=== PATIENT | male | born 1975 | race Caucasian/White ===

== ENCOUNTER 2017-07-02 19:54 | Inpatient (IN) | payer BC ==
[~2017-07-02] VITALS: Ht 190.5 cm; Wt 160.6 kg
[2017-07-02] MEDS ORDERED: ALBUTEROL SULF 2.5 MG/0.5ML(0.5%) NEB SOLN NEB ONE (20:30)
[2017-07-02] MEDS ORDERED: IPRATROPIUM BROM 0.5 MG/2.5ML INH SOL NEB ONE (20:30)
[2017-07-02 21:04] LABS: Basophils # (auto) 0 uL; Basophils % (auto) 0.2 % (0.0-2.0); Eosinophils # (auto) 0.1 uL; Eosinophils % (auto) 1.2 % (0.0-7.0); Hematocrit 52.7 % (41.0-53.0); Hemoglobin 16.6 g/dL (13.5-17.5); Lymphocytes # (auto) 1.6 uL; Lymphocytes % (auto) 20.4 % (10.0-50.0); Mean Corpuscular Hgb Conc. 31.5 g/dL (32.0-36.0); Mean Corpuscular Volume 91.9 fL (80.0-100.0); Monocytes # (auto) 0.7 uL; Monocytes % (auto) 9.4 % (0.0-12.0); Neutrophils # (auto) 5.4 uL; Neutrophils % (auto) 68.8 % (37.0-80.0); Nucleated Red Blood Cells % 0.5 %; Platelet Count (auto) 216 10^3/uL (140-450); Red Blood Cells 5.74 10^6/uL (4.5-5.90); Red Cell Distribution Width 17.9 % (11.8-14.3); White Blood Cell 7.9 10^3/uL (4.4-10.8)
[2017-07-02 21:17] LABS: Albumin 3.1 g/dL (3.4-5.0); BUN/Creatinine Ratio 13.3; Magnesium 1.7 mg/dL (1.6-2.6); Potassium 3.3 mmol/L (3.5-5.1)
[2017-07-02 21:20] LABS: Bilirubin, Total 1.7 mg/dL (0.2-1.0); Total Protein 6.9 g/dL (6.4-8.2)
[2017-07-02 21:29] LABS: INR 1.05 (0.9-1.15); Partial Thromboplastin Time 24.1 sec (22.64-33.71); Prothrombin Time 11.4 sec (9.37-12.3)
[2017-07-02] MEDS ORDERED: FUROSEMIDE 20 MG/2 ML VIAL IV ONE (23:15)
[2017-07-02] MEDS ORDERED: POTASSIUM CHL 20 Meq TABLET PO ONE (23:15)
[2017-07-02] MEDS ORDERED: MORPHINE SULFATE 4 MG/ML SYR/VIAL IV ONE (23:30)
[2017-07-02] MEDS ORDERED: ONDANSETRON HCL 4 MG/2 ML VIAL IV ONE (23:30)
[2017-07-02] MEDS ORDERED: MORPHINE SULFATE 4 MG/ML SYR/VIAL IV PRN (23:45)
[2017-07-02] MEDS ORDERED: ONDANSETRON HCL 4 MG/2 ML VIAL IV PRN (23:45)
[2017-07-02] MEDS ORDERED: ACETAMINOPHEN 500 MG TAB PO PRN (23:45)
[2017-07-02] MEDS ORDERED: NITROGLYCERIN 0.4 MG SL TAB SL PRN (23:45)
[2017-07-03] VITALS (7 sets, daily range): BP systolic 122–139; BP diastolic 66–84
[2017-07-03] MEDS ORDERED: FUROSEMIDE 20 MG/2 ML VIAL IV ONE (00:45)
[2017-07-03] MEDS ORDERED: methylPREDNISolone SOD SUCC 125 MG/2 ML VL IV ONE (00:45)
[2017-07-03 01:43] LABS: Urine Bacteria NONE SEEN /hpf (None Seen); Urine Blood Negative /uL (Negative); Urine Mucus FEW (None Seen); Urine WBC 1 /hpf (0 - 3)
[2017-07-03] MEDS: HYDROcodone-ACET 5/325MG TAB PO PRN ×3 (01:53→22:28)
[2017-07-03] MEDS ORDERED: DIGO0.2520 PO (02:07)
[2017-07-03] MEDS ORDERED: FURO40TA4 PO (02:08)
[2017-07-03] MEDS ORDERED: OMEP20TA PO (02:08)
[2017-07-03] MEDS ORDERED: CARV25TA55 PO (02:09)
[2017-07-03] MEDS ORDERED: ATOR40TA52 PO (02:09)
[2017-07-03] MEDS ORDERED: RIVA20TA PO (02:10)
[2017-07-03 05:47] LABS: Basophils # (auto) 0 uL; Eosinophils # (auto) 0 uL; Hemoglobin 17.2 g/dL (13.5-17.5); Lymphocytes # (auto) 0.9 uL; Monocytes # (auto) 0.2 uL; Neutrophils # (auto) 7.3 uL; White Blood Cell 8.4 10^3/uL (4.4-10.8)
[2017-07-03 05:50] LABS: Basophils % (auto) 0.2 % (0.0-2.0); Eosinophils % (auto) 0.4 % (0.0-7.0); Lymphocytes % (auto) 10.5 % (10.0-50.0); Mean Corpuscular Hemoglobin 29.1 pg (28.0-32.0); Mean Corpuscular Hgb Conc. 31.3 g/dL (32.0-36.0); Monocytes % (auto) 2.1 % (0.0-12.0); Neutrophils % (auto) 86.8 % (37.0-80.0); Nucleated Red Blood Cells % 0.3 %; Platelet Count (auto) 230 10^3/uL (140-450); Red Blood Cells 5.92 10^6/uL (4.5-5.90); Red Cell Distribution Width 18.3 % (11.8-14.3)
[2017-07-03 06:23] LABS: Cholesterol 112 mg/dL (< 200); HDL Cholesterol 23 mg/dL (40-59); LDL Cholesterol 86 mg/dL (< 100); Triglycerides 145 mg/dL (< 150)
[2017-07-03 06:26] LABS: BUN/Creatinine Ratio 13.6; Calcium 8.1 mg/dL (8.5-10.1); Potassium 3.8 mmol/L (3.5-5.1)
[2017-07-03] MEDS: CARVEDILOL 12.5 MG TAB PO SCH ×2 (09:27→22:25)
[2017-07-03] MEDS: DIGOXIN 0.25 MG TAB PO SCH (09:29)
[2017-07-03] MEDS: RIVAROXABAN 20 MG TAB PO SCH (09:57)
[2017-07-03] MEDS ORDERED: POTASSIUM CHL 20 Meq TABLET PO SCH (10:00)
[2017-07-03] MEDS ORDERED: FUROSEMIDE 40 MG/4 ML VIAL IV SCH (10:00)
[2017-07-03] MEDS ORDERED: PANTOPRAZOLE 40 MG TAB PO ONE (11:00)
[2017-07-03] MEDS ORDERED: OPTISON 3ml Vial for INJ IV ONE (14:02)
[2017-07-03] MEDS ORDERED: RIVAROXABAN 20 MG TAB PO SCH (18:00)
[2017-07-03] MEDS: FUROSEMIDE 40 MG/4 ML VIAL IV SCH (18:04)
[2017-07-03 21:39] LABS: Albumin 3.3 g/dL (3.4-5.0); BUN/Creatinine Ratio 17.1; Bilirubin, Total 1.7 mg/dL (0.2-1.0); Calcium 8.2 mg/dL (8.5-10.1); Potassium 3.9 mmol/L (3.5-5.1); Total Protein 7.1 g/dL (6.4-8.2)
[2017-07-03] MEDS: POTASSIUM CHL 20 Meq TABLET PO SCH (22:24)
[2017-07-03] MEDS: ATORVASTATIN 20 MG TAB PO SCH (22:25)
[2017-07-04 04:34] VITALS: BP 120/67
[2017-07-04] MEDS: FUROSEMIDE 40 MG/4 ML VIAL IV SCH ×2 (05:20→17:54)
[2017-07-04] MEDS: HYDROcodone-ACET 5/325MG TAB PO PRN ×2 (05:26→19:26)
[2017-07-04 06:45] LABS: BUN/Creatinine Ratio 21.9; Calcium 8.3 mg/dL (8.5-10.1); Potassium 3.9 mmol/L (3.5-5.1)
[2017-07-04 08:00] VITALS: BP 119/56
[2017-07-04 09:00] VITALS: BP 119/56
[2017-07-04] MEDS: RIVAROXABAN 20 MG TAB PO SCH (09:26)
[2017-07-04] MEDS: POTASSIUM CHL 20 Meq TABLET PO SCH ×2 (09:26→21:49)
[2017-07-04] MEDS: DIGOXIN 0.25 MG TAB PO SCH (09:28)
[2017-07-04] MEDS: PANTOPRAZOLE 40 MG TAB PO SCH (09:29)
[2017-07-04] MEDS: CARVEDILOL 12.5 MG TAB PO SCH ×2 (09:29→21:50)
[2017-07-04] MEDS: ALBUTEROL SULF 2.5 MG/0.5ML(0.5%) NEB SOLN NEB PRN ×2 (10:41→18:35)
[2017-07-04] MEDS: IPRATROPIUM BROM 0.5 MG/2.5ML INH SOL NEB PRN ×2 (10:41→18:35)
[2017-07-04 13:00] VITALS: BP 110/65
[2017-07-04 17:00] VITALS: BP 123/66
[2017-07-04 21:47] VITALS: BP 126/70
[2017-07-04] MEDS: ATORVASTATIN 20 MG TAB PO SCH (21:49)
[2017-07-04] MEDS: TEMAZEPAM 15 MG CAP PO PRN (22:14)
[2017-07-05 04:45] VITALS: BP 108/68
[2017-07-05] MEDS: FUROSEMIDE 40 MG/4 ML VIAL IV SCH ×2 (06:09→18:30)
[2017-07-05] MEDS: HYDROcodone-ACET 5/325MG TAB PO PRN ×2 (06:10→20:50)
[2017-07-05 08:27] VITALS: BP 124/63
[2017-07-05] MEDS: ALBUTEROL SULF 2.5 MG/0.5ML(0.5%) NEB SOLN NEB PRN (09:25)
[2017-07-05] MEDS: IPRATROPIUM BROM 0.5 MG/2.5ML INH SOL NEB PRN (09:25)
[2017-07-05] MEDS: RIVAROXABAN 20 MG TAB PO SCH (10:42)
[2017-07-05] MEDS: PANTOPRAZOLE 40 MG TAB PO SCH (10:42)
[2017-07-05] MEDS: POTASSIUM CHL 20 Meq TABLET PO SCH ×2 (10:42→22:17)
[2017-07-05] MEDS: DIGOXIN 0.25 MG TAB PO SCH (10:42)
[2017-07-05] MEDS: CARVEDILOL 12.5 MG TAB PO SCH ×2 (10:43→22:18)
[2017-07-05 16:26] VITALS: BP 110/67
[2017-07-05 22:00] VITALS: BP 118/74
[2017-07-05] MEDS: TEMAZEPAM 15 MG CAP PO PRN (22:17)
[2017-07-05] MEDS: ATORVASTATIN 20 MG TAB PO SCH (22:17)
[2017-07-06] MEDS: FUROSEMIDE 40 MG/4 ML VIAL IV SCH (05:38)
[2017-07-06 06:10] VITALS: BP 122/70
[2017-07-06] MEDS: HYDROcodone-ACET 5/325MG TAB PO PRN (08:05)
[2017-07-06 09:00] VITALS: BP 125/73
[2017-07-06] MEDS: CARVEDILOL 12.5 MG TAB PO SCH ×2 (10:57→20:59)
[2017-07-06] MEDS: DIGOXIN 0.25 MG TAB PO SCH (10:58)
[2017-07-06] MEDS: POTASSIUM CHL 20 Meq TABLET PO SCH ×2 (10:58→21:00)
[2017-07-06] MEDS: PANTOPRAZOLE 40 MG TAB PO SCH (10:58)
[2017-07-06] MEDS: RIVAROXABAN 20 MG TAB PO SCH (10:59)
[2017-07-06] MEDS: ALBUTEROL SULF 2.5 MG/0.5ML(0.5%) NEB SOLN NEB PRN (11:40)
[2017-07-06] MEDS: IPRATROPIUM BROM 0.5 MG/2.5ML INH SOL NEB PRN (11:40)
[2017-07-06 13:00] VITALS: BP 148/69
[2017-07-06 17:00] VITALS: BP 131/71
[2017-07-06] MEDS: FUROSEMIDE 40 MG TAB PO SCH (17:40)
[2017-07-06] MEDS: ATORVASTATIN 20 MG TAB PO SCH (20:59)
[2017-07-06] MEDS: TEMAZEPAM 15 MG CAP PO PRN (21:00)
[2017-07-06 22:00] VITALS: BP 125/71
[2017-07-07] MEDS: HYDROcodone-ACET 5/325MG TAB PO PRN ×4 (02:11→21:03)
[2017-07-07 05:10] VITALS: BP 115/72
[2017-07-07] MEDS: FUROSEMIDE 40 MG TAB PO SCH ×2 (06:12→18:05)
[2017-07-07 06:47] LABS: Potassium 4.3 mmol/L (3.5-5.1)
[2017-07-07 06:51] LABS: BUN/Creatinine Ratio 27.1; Calcium 9.3 mg/dL (8.5-10.1)
[2017-07-07 08:08] VITALS: BP 120/75
[2017-07-07] MEDS: RIVAROXABAN 20 MG TAB PO SCH (09:42)
[2017-07-07] MEDS: CARVEDILOL 12.5 MG TAB PO SCH ×2 (09:42→21:03)
[2017-07-07] MEDS: PANTOPRAZOLE 40 MG TAB PO SCH (09:43)
[2017-07-07] MEDS: POTASSIUM CHL 20 Meq TABLET PO SCH ×2 (09:43→21:02)
[2017-07-07] MEDS: DIGOXIN 0.25 MG TAB PO SCH (09:43)
[2017-07-07 11:55] VITALS: BP 105/59
[2017-07-07 16:59] VITALS: BP 96/68
[2017-07-07] MEDS: ATORVASTATIN 20 MG TAB PO SCH (21:03)
[2017-07-07] MEDS: TEMAZEPAM 15 MG CAP PO PRN (21:56)
[2017-07-07 23:10] VITALS: BP 105/57
[2017-07-08 05:20] VITALS: BP 108/66
[2017-07-08] MEDS: FUROSEMIDE 40 MG TAB PO SCH ×2 (06:11→17:17)
[2017-07-08 09:00] VITALS: BP 122/64
[2017-07-08] MEDS: DIGOXIN 0.25 MG TAB PO SCH (10:04)
[2017-07-08] MEDS: POTASSIUM CHL 20 Meq TABLET PO SCH ×2 (10:04→21:39)
[2017-07-08] MEDS: RIVAROXABAN 20 MG TAB PO SCH (10:05)
[2017-07-08] MEDS: PANTOPRAZOLE 40 MG TAB PO SCH (10:05)
[2017-07-08] MEDS: CARVEDILOL 12.5 MG TAB PO SCH ×2 (10:05→21:40)
[2017-07-08 10:45] VITALS: BP 108/66
[2017-07-08 13:00] VITALS: BP 111/75
[2017-07-08 17:00] VITALS: BP 118/80
[2017-07-08] MEDS: TEMAZEPAM 15 MG CAP PO PRN (21:39)
[2017-07-08] MEDS: ATORVASTATIN 20 MG TAB PO SCH (21:40)
[2017-07-08 21:52] VITALS: BP 131/80
[2017-07-09 05:00] VITALS: BP 114/67
[2017-07-09] MEDS: HYDROcodone-ACET 5/325MG TAB PO PRN (06:06)
[2017-07-09] MEDS: FUROSEMIDE 40 MG TAB PO SCH ×2 (06:08→18:00)
[2017-07-09 08:41] VITALS: BP 118/75
[2017-07-09] MEDS: RIVAROXABAN 20 MG TAB PO SCH (09:03)
[2017-07-09] MEDS: CARVEDILOL 12.5 MG TAB PO SCH (09:04)
[2017-07-09] MEDS: DIGOXIN 0.25 MG TAB PO SCH (09:04)
[2017-07-09] MEDS: PANTOPRAZOLE 40 MG TAB PO SCH (09:04)
[2017-07-09] MEDS: POTASSIUM CHL 20 Meq TABLET PO SCH (09:04)
[2017-07-09 14:29] VITALS: BP 122/76
[2017-07-09 17:43] VITALS: BP 110/64
== END 2017-07-09 18:08 | disposition home or self-care (01) | DRG 291 ==
LOC: ER 19:54 → TELE 19:55 → TELE-CENTR 07-03 01:05
PROVIDERS: ADMIT Nurse Practitioner Family; ATTEND Internal Medicine
PROC: 5A09357 Assistance with Respiratory Ventilation, Less than 24 Consecutive Hours, Continuous Positive Airway Pressure (ICD-10-PCS; principal; 2017-07-06)
PROC: 5A09357 Assistance with Respiratory Ventilation, Less than 24 Consecutive Hours, Continuous Positive Airway Pressure (ICD-10-PCS; 2017-07-07)
PROC: 5A09357 Assistance with Respiratory Ventilation, Less than 24 Consecutive Hours, Continuous Positive Airway Pressure (ICD-10-PCS; 2017-07-08)
PROC: 5A09357 Assistance with Respiratory Ventilation, Less than 24 Consecutive Hours, Continuous Positive Airway Pressure (ICD-10-PCS; 2017-07-09)
DX: I11.0 Hypertensive heart disease with heart failure (principal); J96.00 Acute respiratory failure, unspecified whether with hypoxia or hypercapnia; E87.2 Acidosis; E66.01 Morbid (severe) obesity due to excess calories; J45.901 Unspecified asthma with (acute) exacerbation; Z68.41 Body mass index [BMI] 40.0-44.9, adult; I50.43 Acute on chronic combined systolic (congestive) and diastolic (congestive) heart failure; I42.9 Cardiomyopathy, unspecified; E78.5 Hyperlipidemia, unspecified; E87.6 Hypokalemia; G47.33 Obstructive sleep apnea (adult) (pediatric); J98.8 Other specified respiratory disorders; I48.91 Unspecified atrial fibrillation; R74.8 Abnormal levels of other serum enzymes; Z99.81 Dependence on supplemental oxygen; Z79.01 Long term (current) use of anticoagulants; Z82.3 Family history of stroke; Z82.49 Family history of ischemic heart disease and other diseases of the circulatory system; Z79.899 Other long term (current) drug therapy
CPT/HCPCS: 36415; 36600; 71045; 80048; 80053; 80061; 81001; 82140; 82805; 82962; 83735; 83880; 84443; 84484; 85025; 85379; 85610; 85730; 93005; 93306; 93970; 94640; 94660; 94761; 96374; 96375; J2405; Q9956

== ENCOUNTER 2019-08-22 14:47 | Inpatient (IN) | payer BC, MEDICAID ==
[~2019-08-22] VITALS: Ht 190.5 cm; Wt 133.0 kg
[~2019-08-22 14:47] MED LIST: ATOR40TA52 PO; CARV25TA55 PO; DIGO0.2520 PO; DOXYCYCLINE 100MG/250ML 250 ML IV SCH; FURO40TA4 PO; OMEP20TA PO; RIVA20TA PO
[2019-08-22] MEDS ORDERED: SODIUM CHLORIDE 0.9% 1,000 ML IV ONE (14:58)
[2019-08-22] MEDS ORDERED: AMIODARONE HCL 150 MG in D5W 5% 100 ML IV ONE (15:00)
[2019-08-22] MEDS ORDERED: PANTOPRAZOLE 40 MG/10 ML VIAL INJ IV ONE (15:00)
[2019-08-22] MEDS ORDERED: AMIODARONE 450mg/250ml AE 250 ML IV SCH (15:08)
[2019-08-22] MEDS ORDERED: AMIODARONE HCL (50 MG/ ML) 3 ML VIAL IV ONE (15:08)
[2019-08-22] MEDS ORDERED: IPRATROPIUM BROM 0.5 MG/2.5ML INH SOL NEB ONE ×2 (15:30→17:15)
[2019-08-22] MEDS ORDERED: FUROSEMIDE 20 MG/2 ML VIAL IV ONE ×2 (15:30→16:30)
[2019-08-22] MEDS ORDERED: ALBUTEROL SULF 2.5 MG/0.5ML(0.5%) NEB SOLN NEB ONE (15:30)
[2019-08-22 15:35] LABS: Eosinophils # (auto) 0 10 ^3/uL (0-0.8); Eosinophils % (auto) 0.3 % (0.0-7.0); Lymphocytes # (auto) 0.9 10 ^3/uL (0.4-5.4); Red Blood Cells 4.98 10^6/uL (4.5-5.90)
[2019-08-22 15:36] LABS: Basophils # (auto) 0.1 10 ^3/uL (0-0.2); Basophils % (auto) 0.7 % (0.0-2.0); Hematocrit 54.3 % (41.0-53.0); Lymphocytes % (auto) 10.7 % (10.0-50.0); Monocytes # (auto) 0.7 10 ^3/uL (0-1.3); Monocytes % (auto) 8.6 % (0.0-12.0); Neutrophils # (auto) 6.7 10 ^3/uL (1.6-8.6); Neutrophils % (auto) 79.7 % (37.0-80.0); White Blood Cell 8.4 10^3/uL (4.4-10.8)
[2019-08-22 15:37] LABS: Mean Corpuscular Hemoglobin 36.1 pg (28.0-32.0); Mean Corpuscular Hgb Conc. 33.2 g/dL (32.0-36.0); Mean Corpuscular Volume 108.9 fL (80.0-100.0); Platelet Count (auto) 143 10^3/uL (140-450); Red Cell Distribution Width 16.3 % (11.8-14.3)
[2019-08-22] MEDS ORDERED: dilTIAZem 25 MG/5 ML VIAL IV ONE (15:45)
[2019-08-22] MEDS ORDERED: dilTIAZem HCL 50 MG/10 ML VIAL IV ONE (15:46)
[2019-08-22 15:57] LABS: Alanine Aminotransferase 125 U/L (16-61); Albumin 2.9 g/dL (3.4-5.0); Anion Gap 12 (5-15); Aspartate Aminotransferase 209 U/L (15-37); BUN/Creatinine Ratio 16.7; Blood Urea Nitrogen 13 mg/dL (7-18); Calcium 7.8 mg/dL (8.5-10.1); Carbon Dioxide 24 mmol/L (21-32); Chloride 100 mmol/L (98-107); GFR African American 138 mL/min; GFR Non-African American 114 mL/min; Glucose 138 mg/dL (74-106); Sodium 136 mmol/L (136-145)
[2019-08-22 15:58] LABS: INR 1.18 (0.9-1.15); Partial Thromboplastin Time 25.4 sec (23.64-32.05)
[2019-08-22 15:59] LABS: Alkaline Phosphatase 65 U/L (45-117); Bilirubin, Total 7.7 mg/dL (0.2-1.0); Total Protein 7.2 g/dL (6.4-8.2)
[2019-08-22] MEDS ORDERED: DIGOXIN (250MCG/ML) 2 ML AMPULE ONE (16:07)
[2019-08-22 16:15] LABS: Potassium 2.8 mmol/L (3.5-5.1)
[2019-08-22] MEDS ORDERED: DIGOXIN (250MCG/ML) 2 ML AMPULE IV ONE (16:15)
[2019-08-22] MEDS ORDERED: MAGNESIUM SULFATE 1GM/100ML 100 ML IV ONE (16:24)
[2019-08-22] MEDS: MAGNESIUM SULFATE 1GM/100ML 100 ML IV SCH ×2 (16:26→17:19)
[2019-08-22] MEDS: POTASSIUM CHL 20 Meq TABLET PO SCH ×2 (16:31→18:00)
[2019-08-22 16:50] LABS: Urine Bacteria NONE SEEN /hpf (None Seen); Urine Blood Negative /uL (Negative); Urine Hyaline Cast FEW /lpf (0 - 2); Urine Mucus FEW (None Seen); Urine WBC 2 /hpf (0 - 3)
[2019-08-22 16:54] LABS: Amphetamine Screen, Urine NEGATIVE (NEGATIVE); Barbiturate Scree,Urine NEGATIVE (NEGATIVE); Benzodiazephine Screen, Urine NEGATIVE (NEGATIVE); Cannabinoid Screen, Urine NEGATIVE (NEGATIVE); Cocaine Screen, Urine NEGATIVE (NEGATIVE); Opiate Scree,Urine NEGATIVE (NEGATIVE); Phencyclidine Screen, Urine NEGATIVE (NEGATIVE)
[2019-08-22] MEDS ORDERED: METOCLOPRAMIDE HCL 5MG/ml INJ 2ml VIAL IV PRN (17:00)
[2019-08-22] MEDS ORDERED: ATORVASTATIN 20 MG TAB PO ONE (17:00)
[2019-08-22] MEDS ORDERED: METOPROLOL SUCCINATE XL 50 MG TAB PO ONE (17:00)
[2019-08-22] MEDS ORDERED: NITROGLYCERIN 0.4 MG SL TAB SL PRN (17:00)
[2019-08-22] MEDS ORDERED: ALUM & MAG HYDROX-SIMETH LIQ(MAALOX) 30 ML PO PRN (17:00)
[2019-08-22] MEDS ORDERED: DOCUSATE SOD 100 MG CAP PO PRN (17:00)
[2019-08-22] MEDS ORDERED: MORPHINE SULF INJ 2 MG/ML SYRINGE 1ML IV PRN ×2 (17:00)
[2019-08-22] MEDS ORDERED: LORazepam 2MG/ML-1ML VIAL ONE (17:07)
[2019-08-22] MEDS ORDERED: IOHEXOL 350 MG/ML 100ML IJ ONE (17:08)
[2019-08-22] MEDS ORDERED: DOXYCYCLINE 100MG/250ML 250 ML IV ONE (17:15)
[2019-08-22] MEDS ORDERED: LORazepam 2MG/ML-1ML VIAL IV ONE (17:15)
[2019-08-22] MEDS ORDERED: RIVAROXABAN 20 MG TAB PO SCH (17:30)
[2019-08-22] MEDS: FUROSEMIDE 100 MG/10ML VIAL IV SCH (17:34)
[2019-08-22 17:57] VITALS: BP 117/64
--- NOTE | 2019-08-22 18:23 | NUR ---
RT NOTE PT WAS SEEN BY RT FOR HHN TX. PT TOLERATES WELL VIA MOUTHPIECE. NO ADVERSE REACTION NOTED. CONT ORDERED. POX 95% Addendum: 08/22/19 at 1825 by Melissa Paniagua RT Amended: Links added.
[2019-08-22] MEDS ORDERED: HEPARIN DRIP/D5W 100UNITS/ML 250 ML IV SCH (18:37)
[2019-08-22] MEDS ORDERED: HEPARIN SODIUM (PORCINE) 5000 UNITS/ML 1ML VIAL IV ONE (18:45)
[2019-08-22] MEDS: HEPARIN DRIP/D5W 100UNITS/ML 250 ML IV SCH (19:08)
[2019-08-22 20:57] LABS: Basophils # (auto) 0.1 10 ^3/uL (0-0.2); Basophils % (auto) 0.7 % (0.0-2.0); Eosinophils # (auto) 0 10 ^3/uL (0-0.8); Monocytes # (auto) 0.9 10 ^3/uL (0-1.3); Monocytes % (auto) 8.5 % (0.0-12.0); Neutrophils # (auto) 7.5 10 ^3/uL (1.6-8.6); Red Cell Distribution Width 16.2 % (11.8-14.3)
[2019-08-22 20:59] LABS: Eosinophils % (auto) 0.3 % (0.0-7.0); Hematocrit 54.9 % (41.0-53.0); Hemoglobin 18.1 g/dL (13.5-17.5); Lymphocytes # (auto) 1.6 10 ^3/uL (0.4-5.4); Lymphocytes % (auto) 15.9 % (10.0-50.0); Mean Corpuscular Hgb Conc. 32.9 g/dL (32.0-36.0); Mean Corpuscular Volume 109.4 fL (80.0-100.0); Neutrophils % (auto) 74.6 % (37.0-80.0); Nucleated Red Blood Cells % 0.3 %; Platelet Count (auto) 151 10^3/uL (140-450); Red Blood Cells 5.02 10^6/uL (4.5-5.90)
[2019-08-22] MEDS: LORazepam 0.5 MG TAB PO PRN (21:24)
[2019-08-22] MEDS: methylPREDNISolone SOD SUCC 40 MG/ML VL IV SCH (21:43)
[2019-08-22] MEDS: ATORVASTATIN 20 MG TAB PO SCH (21:43)
[2019-08-22] MEDS: HYDROcodone-ACET 5/325MG TAB PO PRN (21:44)
[2019-08-22] MEDS ORDERED: IPRATROPIUM BROM 0.5 MG/2.5ML INH SOL NEB SCH (22:00)
[2019-08-22] MEDS ORDERED: CARVEDILOL 3.125 MG TAB PO SCH (22:00)
--- NOTE | 2019-08-22 22:26 | NUR ---
RT NOTE PT WAS SEEN BY RT FOR HHN TX IN THE ER. PT TOLERATES WELL VIA MOUTHPIECE. NO ADVERSE REACTION NOTED. CONT ORDERED Addendum: 08/22/19 at 2226 by Melissa Paniagua RT Amended: Links added.
[2019-08-22] MEDS ORDERED: AMIODARONE HCL 900 MG IV ONE (22:38)
[2019-08-22] MEDS ORDERED: HYDROmorphone HCL 2 MG/ML VL ONE (22:51)
[2019-08-22] MEDS ORDERED: METOPROLOL TARTRATE 1MG/1ML-5ML VIAL IV ONE ×2 (22:52→23:00)
[2019-08-22] MEDS: HYDROmorphone HCL 2 MG/ML VL IV PRN (23:00)
[2019-08-22 23:32] LABS: Albumin 2.9 g/dL (3.4-5.0); BUN/Creatinine Ratio 17.3; Calcium 7.8 mg/dL (8.5-10.1); Potassium 3.3 mmol/L (3.5-5.1)
[2019-08-22 23:35] LABS: Bilirubin, Total 8.9 mg/dL (0.2-1.0); Total Protein 7.2 g/dL (6.4-8.2)
--- NOTE | 2019-08-22 23:57 | NUR ---
Pt being admitted to ICU AWAISKJ admitted to ICU via gurney on radiation monitor, and portable 02. Patient transfered to bed, connected to ICU monitoring and oxygen, and weighed by bedscale. Patient oriented to Kennedy jimenez RN, unit, room, bed, and unit policies regarding patient care and visiting hours. All questions and concerns addressed, patient verbalized understanding. NOTE:
[2019-08-23] VITALS (29 sets, daily range): BP systolic 113–175; BP diastolic 63–133
--- NOTE | 2019-08-23 00:30 | NUR ---
IV removal IV TO LEFT AC DC'd with clean sterile technique, catheter fully intact. Pressure dressing applied to site. Patient tolerated well.
--- NOTE | 2019-08-23 00:40 | NUR ---
IV insertion IV access obtained, via clean sterile technique by inserting 20 gauge catheter at RIGHT FOREARM after 1 attempt(s). IV secured properly. No trauma to site. Patient tolerated well.
[2019-08-23] MEDS ORDERED: METOPROLOL TARTRATE 1MG/1ML-5ML VIAL IV PRN (01:00)
[2019-08-23] MEDS ORDERED: AMIODARONE 450mg/250ml AE 250 ML IV SCH ×2 (01:04→07:04)
[2019-08-23 01:16] LABS: INR 1.28 (0.9-1.15); Partial Thromboplastin Time 36.5 sec (23.64-32.05)
[2019-08-23] MEDS: POTASSIUM CHL 20MEQ/100ML 100 ML IV SCH ×2 (01:26→03:36)
[2019-08-23] MEDS ORDERED: FLUT500M2 INH (01:47)
[2019-08-23] MEDS: HYDROmorphone HCL 2 MG/ML VL IV PRN ×4 (03:29→20:18)
[2019-08-23] MEDS ORDERED: DOXYCYCLINE 100MG/250ML 250 ML IV SCH (05:00)
[2019-08-23] MEDS: methylPREDNISolone SOD SUCC 40 MG/ML VL IV SCH (05:39)
[2019-08-23] MEDS: FUROSEMIDE 100 MG/10ML VIAL IV SCH (05:40)
[2019-08-23] MEDS: LORazepam 0.5 MG TAB PO PRN (05:47)
[2019-08-23] MEDS ORDERED: FUROSEMIDE 100 MG/10ML VIAL IV SCH (06:00)
[2019-08-23] MEDS: BUDESONIDE (INHALATION) 0.5 MG/2 ML NEB NEB SCH ×2 (06:22→18:32)
[2019-08-23] MEDS: LEVALBUTEROL HCL 1.25 MG/3 ML NEB NEB PRN (06:22)
[2019-08-23] MEDS: IPRATROPIUM BROM 0.5 MG/2.5ML INH SOL NEB SCH ×3 (06:22→18:32)
[2019-08-23] MEDS: HEPARIN DRIP/D5W 100UNITS/ML 250 ML IV SCH ×2 (07:00→17:28)
[2019-08-23] MEDS: AMIODARONE 450mg/250ml AE 250 ML IV SCH ×3 (07:15→22:45)
--- NOTE | 2019-08-23 07:30 | NUR ---
REPORT REPORT RECEIVED FROM NIGHT RNTHOMAS. PT RESTING IN BED WITH EYES CLOSED. NO DISTRESS NOTED. REMAINS IN ATRIAL FIB ,RATE IN THE 130'S, WITH AMIODARONE AT 1 MG/MIN PER MD ORDER. CONTINUE TO MONITOR.
[2019-08-23 08:12] LABS: Eosinophils # (auto) 0 10 ^3/uL (0-0.8); Lymphocytes # (auto) 0.5 10 ^3/uL (0.4-5.4); Monocytes # (auto) 0.5 10 ^3/uL (0-1.3)
[2019-08-23 08:14] LABS: Basophils # (auto) 0.1 10 ^3/uL (0-0.2); Basophils % (auto) 1.1 % (0.0-2.0); Hematocrit 53.4 % (41.0-53.0); Hemoglobin 17.5 g/dL (13.5-17.5); Lymphocytes % (auto) 6.3 % (10.0-50.0); Mean Corpuscular Hemoglobin 35.8 pg (28.0-32.0); Mean Corpuscular Hgb Conc. 32.9 g/dL (32.0-36.0); Monocytes % (auto) 5.9 % (0.0-12.0); Neutrophils # (auto) 7.4 10 ^3/uL (1.6-8.6); Neutrophils % (auto) 86.7 % (37.0-80.0); Nucleated Red Blood Cells % 0.1 %; Platelet Count (auto) 122 10^3/uL (140-450); Red Blood Cells 4.89 10^6/uL (4.5-5.90); Red Cell Distribution Width 16.5 % (11.8-14.3); White Blood Cell 8.6 10^3/uL (4.4-10.8)
[2019-08-23] MEDS: DIGOXIN 0.25 MG TAB PO SCH (08:16)
--- NOTE | 2019-08-23 08:17 | NUR ---
ASSESSMENT PT AWAKE AND A/O X4. ABLE TO REPOSITION HIMSELF IN BED. LUNGS CLEAR AND DIMINISHED THROUGHOUT. ON O2 AT 8 L/M VIA OXYMIZER WITH O2 SAT OF 90%. DENIES FEELING SOB. PT WITH EXTENSIVE PE TO BOTH LUNGS. ON HEPARIN DRIP AT 2200 UNIT/HR , PER PROTOCOL. PTT AND AM LABS WERE DRAWN AT 0800. TELE ATRIAL FIB WITH RATE 130-140'S. PT ON AMIODARONE DRIP WITH RATE BEING KEPT AT 1 MG/MIN, PER MD ORDER. PALPABLE PULSES TO ALL EXTREMITIES. ABD SOFT WITH + BOWEL SOUNDS. DENIES ANY NAUSEA OR VOMITING. PT WITH PERIPHERAL IV X3, 2 TO THE HAND AND ONE TO THE RAC. ALL SITES BENIGN. PT WITH C/O PAIN TO THE LOWER BACK, 01/24. MEDICATED WITH DILAUDID 1 MG IV PER MD ORDER. RAILS UP X4 AND BED IN LOW POSITION FOR PT SAFETY. CONTINUE TO MONITOR PT FOR HR, BP AND PAIN RELIEF.
[2019-08-23 08:30] LABS: INR 1.23 (0.9-1.15); Partial Thromboplastin Time 40.5 sec (23.64-32.05)
[2019-08-23 08:31] LABS: Albumin 2.7 g/dL (3.4-5.0); Calcium 7.5 mg/dL (8.5-10.1); Magnesium 1.6 mg/dL (1.6-2.6); Potassium 3.5 mmol/L (3.5-5.1)
[2019-08-23 08:36] LABS: BUN/Creatinine Ratio 20.5; Bilirubin, Total 8.5 mg/dL (0.2-1.0); Phosphorus 3.5 mg/dL (2.5-4.90); Total Protein 6.8 g/dL (6.4-8.2)
--- NOTE | 2019-08-23 09:00 | NUR ---
PAIN PAIN LEVEL DOWN TO 6. CONTINUE TO MONITOR,
--- NOTE | 2019-08-23 09:30 | NUR ---
CARDIOLOGY TRES STAPLETON, CARDIOLOGY HIDE WASHER, HERE TO SEE THE PT. I UPDATED HER ON THE PT'S CURRENT CONDITION INCLUDING HR 130-140'S ATRIAL FIB, DESPITE AMIODARONE DRIP AND I GAVE DAILY DOSE OF DIG AT 0820, AND K OF 3.5 AND PT ON LASIX BID. ORDERS RECEIVED.
[2019-08-23] MEDS ORDERED: ASPirin 81 mg TAB PO SCH (10:00)
[2019-08-23] MEDS ORDERED: ENOXAPARIN SOD 40 MG/0.4 ML SYRINGE SC SCH (10:00)
[2019-08-23] MEDS ORDERED: POTASSIUM CHL 20 Meq TABLET PO SCH (10:00)
[2019-08-23] MEDS: METOPROLOL SUCCINATE XL 50 MG TAB PO SCH (10:08)
[2019-08-23] MEDS: PANTOPRAZOLE 40 MG TAB PO SCH (10:08)
[2019-08-23] MEDS: MAGNESIUM SULFATE 1GM/100ML 100 ML IV SCH ×2 (10:18→11:45)
--- NOTE | 2019-08-23 11:49 | NUR ---
PAGED DR NIEVES REGARDING PT'S C/O PAIN TO LOWER BACK. BEST RELIEF WITH DILAUDID WAS 6/10.
[2019-08-23] MEDS ORDERED: KETOROLAC TROMETH 30 MG/ML 1ML VIAL IV ONE (12:30)
--- NOTE | 2019-08-23 12:42 | NUR ---
PAIN/MD SPOKE WITH DR NIEVES REGARDING PT'S C/O BACK PAIN , NOW 01/24 UP FROM 09/24. ORDER RECEIVED FOR TORADOL 30 MG IV X1 AND GIVEN . MD STATES HE WILL BE DOWN SHORTLY. CONTINUE TO MONITOR PT FOR PAIN RELIEF. VS CURRENTLY 135-16-92% ON 8 L/M VIA OXYMIZER AND 130/106.
[2019-08-23] MEDS ORDERED: FOLIC ACID 1 MG in D5W 5% 50 ML IV ONE (13:15)
[2019-08-23] MEDS ORDERED: METOCLOPRAMIDE HCL 5MG/ml INJ 2ml VIAL IV PRN (13:15)
[2019-08-23] MEDS ORDERED: KETOROLAC TROMETH 30 MG/ML 1ML VIAL IV PRN (13:15)
[2019-08-23] MEDS ORDERED: THIAMINE 100mg/ml INJ (200mg/2ml VIAL) IV ONE (13:15)
--- NOTE | 2019-08-23 13:15 | NUR ---
MD VISIT/PAIN PT SEEN AND EXAMINED BY DR NIEVES. PT STATING THAT THE PAIN MEDICINE DID NOT HELP. DR NIEVES TOLD HIM HE NEEDS TO GIVE IT MORE TIME. PER MD. GIVE 15MG OF IV TORADOL Q 6 HRS PRN AND MAY SUPPLEMENT WITH EITHER NORCO OR DILAUDID SO PT CAN HAVE SOMETHING FOR PAIN EVERY 3 HOURS PRN. EXPLAINED TO PT. Addendum: 08/23/19 at 1532 by Nadia Victoria RN ALSO DISCUSSED WITH DR NIEVES THE PT'S ELEVATED HR AND HE IS STILL IN ATRIAL FIB, RATE 120'S TO 139. HE DOESN'T WANT ANY ADDITIONAL MED GIVEN AT THIS TIME.
--- NOTE | 2019-08-23 15:03 | NUR ---
PAIN PT MEDICATED WITH DILAUDID 1 MG IV FOR C/O BACK PAIN, 01/24. Addendum: 08/23/19 at 1532 by Nadia Victoria RN MONITOR FOR PAIN RELIEF AND REMINDED PT HE IS NOT TO GET OOB DUE TO THE EXTENSIVE BLOOD CLOTS AND ALSO THAT HE RECEIVED PAIN MED. HE EXPRESSED UNDERSTANDING.
[2019-08-23 16:43] LABS: INR 1.2 (0.9-1.15); Partial Thromboplastin Time 43.7 sec (23.64-32.05)
--- NOTE | 2019-08-23 17:22 | NUR ---
HEPARIN DRIP PTT OF 43.7 . PER PROTOCOL. RATE IS TO BE INCREASED BY 200 UNITS/HR. SPOKE WITH TASHA, PHARMACIST, INQUIRING IF THERE IS A MAXIMUM RATE OF INFUSION. HE STATED THAT LONG THE PT IS NOT HAVING ANY BLEEDING ISSUES THAT THERE IS NO MAXIMUM RATE. INCRASED THE RATE TO 2600 UNITS/HR AND VERIFIED BY TERRY ARAGON RN. WILL CHECK ANOTHER PTPTT AT 1130.
--- NOTE | 2019-08-23 18:02 | NUR ---
PAIN MEDICATED PT FOR C/O BACK PAIN, 12/25, WITH TORADOL 15 MG IV. CONTINUE TO MONITOR FOR PAIN RELIEF.
--- NOTE | 2019-08-23 19:30 | NUR ---
PT ATE ABOUT 60% OF HIS DINNER.
--- NOTE | 2019-08-23 19:30 | NUR ---
REPORT REPORT GIVEN TO SUMMER PEMBERTON RN.
--- NOTE | 2019-08-23 20:00 | NUR ---
Opening Shift Note/ pain Assumed care of patient, awake and alert. Breathing on Oxymizer 8LPM, nonlabored, No S/S of distress/SOB. Reported severe pain at back area 01/24, stated that the IV pain medicine that was previously given was not helping at all. Alternative pain relieved given; cold/ hot compress, Pt refused. Pt refused [place] PO, stated that pain tablet did not help him, will give Dilaudid per MD order and continue monitor. PIV x3 at right arm, CDI site. Due to void. Bed in low position, call light within reach, Fall and safety precaution in place, all alarms are audible. Instructed on POC and to call for assist PRN, will continue to monitor for changes Q1hr and PRN. Addendum: 08/24/19 at 0101 by Alejandra Brown RN Noted patient own medicines in the belonging bag, explained the reason and policy to patient, patient complied, will send home med to pharmacy for keeping and safety.
--- NOTE | 2019-08-23 21:20 | NUR ---
Patient own medication submitted to the pharmacy. POM wrist band applied to the patient. POM sticker applied to the chart.
--- NOTE | 2019-08-23 22:24 | NUR ---
Condition update/ sleeping medicine Pt lying on the bed, relaxed. VSS, nonlabored breathing. Pt reported more comfortable feeling now, nausea subsided, pain controlled and he might not need pain medicine tonight. Pt requested sleeping medicine. [facility] Hospitalist. Continue monitoring. Addendum: 08/24/19 at 0059 by Alejandra Brown RN Fabien PEPPER called back, condition notified, new order received, telephone order read back and verified correct see details in order sheet, will carry out the order.
[2019-08-23] MEDS: ATORVASTATIN 20 MG TAB PO SCH (23:40)
[2019-08-23] MEDS: TEMAZEPAM 15 MG CAP PO PRN (23:40)
--- NOTE | 2019-08-23 23:50 | NUR ---
Heparin drip PTT resulted 37.6 Adjusted per EMAR. increased from 2600units to 2800 units/hr. Co-singed at EMAR and bedside with Jorge MURPHY. Next PTT at 05.50am.
[2019-08-24] VITALS (68 sets, daily range): BP systolic 81–144; BP diastolic 62–111
[2019-08-24] MEDS: IPRATROPIUM BROM 0.5 MG/2.5ML INH SOL NEB SCH ×4 (00:05→18:23)
[2019-08-24] MEDS: LEVALBUTEROL HCL 1.25 MG/3 ML NEB NEB PRN (00:06)
[2019-08-24] MEDS: HYDROmorphone HCL 2 MG/ML VL IV PRN ×4 (00:38→21:13)
[2019-08-24] MEDS: TEMAZEPAM 15 MG CAP PO PRN (01:35)
--- NOTE | 2019-08-24 01:36 | NUR ---
Condition update/ tachycardia Pt stated that the pain is much better, pain score 7-8/10. Pt seemed comfortable, lying in bed, no agitation. HR sustained 140's -150's, SBP 130's. Metoprolol PRN given per order, continue monitoring.
[2019-08-24] MEDS: LORazepam 0.5 MG TAB PO PRN (03:31)
--- NOTE | 2019-08-24 03:50 | NUR ---
Condition update/ anxiety attack Pt restlessness and agitated with severe anxious. Pt c/o multiple things. Pt said he had been here for 4 days, his heart rates still high. Pt said he is out of breathe, he gonna , his oxygen is low, he coughed up blood. Pt c/o fluid restriction, pt stated he is so dehydrated. Pt c/o IV d/s peeling off. Attempted to calm the patient down, explained 1 issue at the time to patient. PIV d/s x2. Last amount of water of the shift 250ml provided and explained the reason of fluid restriction. Ativan PO given after explained. Explained to patient the investigation results; CTA, echo, LFT, BUN, Cr and so on. Told Pt that will endorse to day shift that Pt requested to talk to MD regarding his condition and POC. Will endorse to day shift that patient request to have more fluid intake. Pt requested to have fruits and vegetable in his food tray. Increased Oxymizer from 8LPM to 10LPM, for desaturation to mid 80's while sleeping. Pt stated that he use home CPAP. Patient can not remember the CPAP pressure level. Bedside time 40mins to calm the patient. Pt refused to do AM care at this time. Put on hospital gown as requested. Finally, Patient calm down and will try to sleep. Continue monitoring.
[2019-08-24] MEDS: HEPARIN DRIP/D5W 100UNITS/ML 250 ML IV SCH ×3 (04:00→21:30)
--- NOTE | 2019-08-24 05:35 | NUR ---
Condition update/ tachycardia Pt lying in the bed, calmed down, anxiety better, pain controlled. HR sustained in 150's, Bp 120/90's. Paged HospitalistMark Conn M.D. called back, condition notified, ordered to give Metoprolol 5mg IV for HR >140 bpm, x3 doses q5mins, monitor BP. Telephone order read back and verified correct. See EMAR for details. Addendum: 08/24/19 at 0750 by Alejandra Brown RN Metoprolol 5mg IV given for 2 doses. HR decreased to 128-142/min, BP 109/82, hold the 3rd dose and will continue monitor.
[2019-08-24] MEDS ORDERED: METOPROLOL TARTRATE 1MG/1ML-5ML VIAL IV ONE ×2 (05:43→05:59)
[2019-08-24] MEDS ORDERED: METOPROLOL TARTRATE 1MG/1ML-5ML VIAL IV SCH (05:45)
[2019-08-24] MEDS: AMIODARONE 450mg/250ml AE 250 ML IV SCH ×3 (06:08→21:16)
[2019-08-24] MEDS: BUDESONIDE (INHALATION) 0.5 MG/2 ML NEB NEB SCH ×2 (06:45→18:23)
--- NOTE | 2019-08-24 06:48 | NUR ---
Called LAB for PTT and AM LABs draw.
--- NOTE | 2019-08-24 07:30 | NUR ---
REPORT REPORT RECEIVED FROM NIECY RNSUMMER. PT RESTING IN BED WITH NO DISTRESS NOTED. REMAINS IN ATRIAL FIB WITH RATE IF THE 140'S. REMAINS ON AMIODARONE DRIP AT 1 MG/MIN. CONTINUE TO MONITOR.
[2019-08-24 07:43] LABS: Basophils # (auto) 0 10 ^3/uL (0-0.2); Eosinophils # (auto) 0 10 ^3/uL (0-0.8); Lymphocytes # (auto) 0.8 10 ^3/uL (0.4-5.4); Monocytes # (auto) 0.8 10 ^3/uL (0-1.3); Nucleated Red Blood Cells % 0.1 %
[2019-08-24 07:44] LABS: Basophils % (auto) 0.3 % (0.0-2.0); Hematocrit 52.4 % (41.0-53.0); Hemoglobin 17.5 g/dL (13.5-17.5); Lymphocytes % (auto) 6.6 % (10.0-50.0); Mean Corpuscular Hemoglobin 36.6 pg (28.0-32.0); Mean Corpuscular Hgb Conc. 33.4 g/dL (32.0-36.0); Mean Corpuscular Volume 109.5 fL (80.0-100.0); Monocytes % (auto) 6.6 % (0.0-12.0); Neutrophils # (auto) 11.1 10 ^3/uL (1.6-8.6); Neutrophils % (auto) 86.5 % (37.0-80.0); Platelet Count (auto) 172 10^3/uL (140-450); Red Blood Cells 4.78 10^6/uL (4.5-5.90); Red Cell Distribution Width 16.8 % (11.8-14.3); White Blood Cell 12.8 10^3/uL (4.4-10.8)
--- NOTE | 2019-08-24 07:56 | NUR ---
ASSESSMENT PT AWAKE AND A/O X4. FOLLOWS SIMPLE COMMANDS AND ABLE TO REPOSITION SELF IN BED. ON O2 AT 10 L/M VIA OXYMIZER WITH O2 SAT OF 92% AND RR 20. PT WITH EXTENSIVE BILATERAL PE AND IS ON A HEPARIN DRIP PER PHARMACY PROTOCOL. PTT AND AM LABS JUST DRAWN AND AWAITING RESULTS HEPARIN CURRENTLY INFUSING AT 2800 UNITS/HR. PRODUCTIVE COUGH WITH BLOOD TINGED SPUTUM. PT HAD PRIOR TO ARRIVING AT THE HOSPITAL. TELE ATRIAL FIB RATE OF 143. CURRENTLY ON AMIODARONE DRIP AT 1 MG/MIN PER MD ORDER. PALPABLE PULSES TO ALL EXTREMITIES. NO EDEMA NOTED. ABD SOFT WITH + BOWEL SOUNDS. LAST BM WAS 08/21. PT STATES HE USUALLY GOES DAILY BUT HAS NOT EATEN MUCH OVER THE LAST 4-5 DAYS. VOIDS VIA URINAL , NONE AT THIS TIME. C/O BACK PAIN 11/24. MEDICATED WITH DILAUDID 1 MG IV. MONITOR FOR RELIEF. RAILS UP X4 AND BED IN LOW POSITION FOR PT SAFETY. HAVE DISCUSSED WITH THE PT THE IMPORTANCE OF STAYING IN BED AND HE EXPRESSED UNDERSTANDING.
[2019-08-24 08:03] LABS: INR 1.22 (0.9-1.15); Partial Thromboplastin Time 42.4 sec (23.64-32.05)
[2019-08-24 08:05] LABS: Albumin 2.7 g/dL (3.4-5.0); Potassium 3.4 mmol/L (3.5-5.1)
[2019-08-24 08:07] LABS: Bilirubin, Total 10.2 mg/dL (0.2-1.0)
[2019-08-24] MEDS: DIGOXIN 0.25 MG TAB PO SCH (08:22)
--- NOTE | 2019-08-24 09:10 | NUR ---
HEPARIN DRIP PTT OF 42.4 AND PER PHARMACY PROTOCOL, INCREASED THE DRIP BY 200 UNITS/HR TO 3000 UNITS/HR. WILL REPEAT PTT IN 6 HOURS.
[2019-08-24] MEDS ORDERED: THIAMINE 100mg/ml INJ (200mg/2ml VIAL) IV SCH (10:00)
[2019-08-24] MEDS: PANTOPRAZOLE 40 MG TAB PO SCH (10:00)
[2019-08-24] MEDS: METOPROLOL SUCCINATE XL 50 MG TAB PO SCH (10:12)
[2019-08-24] MEDS: FOLIC ACID 1 MG in D5W 5% 50 ML IV SCH (10:15)
--- NOTE | 2019-08-24 11:54 | NUR ---
PAIN PT RESTING IN BED AND RECEIVING NEBULIZER TREATMENT. VS: 98.0(O) 137-14-97% AND 123/78. PT STATES BACK PAIN 6/10 BUT IS TOLERABLE. 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 ADVISED HIM THAT IF HE WAITS UNTIL THE PAIN IS VERY SEVERE THAT IT TAKES THE PAIN MED LONGER TO WORK. HE EXPRESSED UNDERSTANDING.
[2019-08-24] MEDS ORDERED: dilTIAZem 25 MG/5 ML VIAL IV ONE (12:15)
[2019-08-24] MEDS ORDERED: FUROSEMIDE 100 MG/10ML VIAL IV ONE (12:15)
[2019-08-24] MEDS ORDERED: POTASSIUM CHL 20 Meq TABLET PO ONE ×2 (12:15→14:45)
[2019-08-24] MEDS ORDERED: dilTIAZem 125mg/125ml BAG KIT 125 ML IV SCH (12:15)
[2019-08-24] MEDS: MAGNESIUM OXIDE 400 MG TAB PO SCH ×2 (13:13→21:32)
--- NOTE | 2019-08-24 13:20 | NUR ---
VS: 153-24-92% ON OXYMIZER AT 10 L/M AND 126/93. ADMINISTERED CARDIZEM 10 MG SLOW IVP AND THEN STARTED PT ON CARDIZEM DRIP AT 5 MG/HR. CONTINUE TO MONITOR VS.
[2019-08-24 14:02] LABS: INR 1.23 (0.9-1.15); Partial Thromboplastin Time 49.4 sec (23.64-32.05)
--- NOTE | 2019-08-24 14:15 | NUR ---
APTT RESULT 49.4. PHARMACIST CALLED AND WANTED TO INCREASED HEPARIN DRIP FROM 3,000 UNITS TO 3,200 UNITS. PUMP ONLY GOES TO 3,000 UNITS/HR . PHARMACIST NOTIFIED OF THE PUMP MAXIMUM RATE OF 3,000 UNITS/HR AND ORDERED TO KEEP 3,000 UNITS FOR NOW AND WAIT FOR THE NEXT BLOOD DRAW RESULT.
[2019-08-24] MEDS ORDERED: METOPROLOL TARTRATE 50 MG TAB PO ONE (14:45)
--- NOTE | 2019-08-24 14:58 | NUR ---
DR NIEVES SPOKE WITH DR CARTER REGARDING PT'S AFIB WITH RATE 130'S. INCREASED CARDIZEM DRIP TO 10MG/HR . VS: 135-16-97% 144/91. CONTINUE TO MONITOR VS.
--- NOTE | 2019-08-24 15:22 | NUR ---
DR CARTER AT THE BEDSIDE. PT'S HR STILL ATRIAL FIB WITH RATE OF 137. 116/81. INCREASED CARDIZEM TO 15 MG/HR. CONTINUE TO MONITOR HR. Addendum: 08/24/19 at 1526 by Nadia Victoria RN PER KERRI JAMA TO INCREASE CARDIZEM DRIP BY 5 MG/HR AT A TIME TO A MAX OF 30 MG/HR BP TOLERATES.
[2019-08-24] MEDS: dilTIAZem 125mg/125ml BAG KIT 125 ML IV SCH ×2 (15:30→21:17)
--- NOTE | 2019-08-24 16:07 | NUR ---
VS: 97.9(o) 131-16-94% on 10 l/m via oxymizer and 103/82. Unable to increase Cardizem drip due to low BP. Continue to monitor.
[2019-08-24] MEDS ORDERED: THIAMINE HCL 100 MG TAB PO ONE (18:00)
--- NOTE | 2019-08-24 19:30 | NUR ---
REPORT REPORT GIVEN TO SUMMER PEMBERTON RN.
--- NOTE | 2019-08-24 20:00 | NUR ---
Opening Shift Note Assumed care of patient, awake and alert, sitting comfortably in bed. Breathing even and nonlabored with Oxymizer 10 LPM, No S/S of distress/SOB, Pt refused SOB. 20G IV at right AC infusing Heparin, Pt c/o tenderness and puffy, changed Heparin to IV at right lateral hand, will d/c right AC IV after obtain new IV. 20G IV at right anterior hand, CDI site, infusing Amiodarone and Cardizem. 20G IV at right lateral IV, CDI site. Due to void. Bed in low position, call light with in reach, all alarms are audible, fall and safety precaution in place. Instructed on POC and to call for assist PRN, will continue to monitor for changes Q1hr and PRN.
[2019-08-24 20:25] LABS: INR 1.18 (0.9-1.15); Partial Thromboplastin Time 31.9 sec (23.64-32.05)
--- NOTE | 2019-08-24 20:32 | NUR ---
PTT level resulted 31.9, called [facility] and consulted regarding Heparin drip as per Lakesha PEPPER ordered. Pharmacist Onel recommended to give -Heparin 5000 units IV bolus -Increased Heparin drip to 3300 units /hr -check PTT 6 hr. after dose adjustment. TORB and verified correct, will carry on orders. Pt has no s/s of bleeding, VSS, no s/s of distress.
[2019-08-24] MEDS ORDERED: HEPARIN SODIUM (PORCINE) 5000 UNITS/ML 1ML VIAL IV ONE (20:45)
--- NOTE | 2019-08-24 21:00 | NUR ---
IV insertion IV access obtained, via clean sterile technique by inserting 22 gauge catheter at right wrist after 1 attempt. IV secured properly. No trauma to site. Patient tolerated well. IV removal IV at right AC DC'd with sterile technique due to tenderness and puffy, catheter fully intact. Pressure dressing applied to site. Patient tolerated procedure well.
--- NOTE | 2019-08-24 21:30 | NUR ---
Condition update/ pain Pt c/o severe back pain 01/24. Pain medicine given after IV access obtained. Noted wheezing lung sounds, educated on breathing exercise and long exhalation. HR while awake with activities, pain about 110-120's, will monitor VS at rest if HR sustaining high greater than 110's, will increase Cardizem as per MD order. Addendum: 08/25/19 at 0118 by Alejandra Brown RN PM care offered, Pt refused at this time. Pt refused stool softener.
[2019-08-24] MEDS: METOPROLOL TARTRATE 50 MG TAB PO SCH (21:31)
[2019-08-24] MEDS: LACTULOSE 20Gm/30ML SOLN PO SCH (21:33)
[2019-08-25] VITALS (90 sets, daily range): BP systolic 71–139; BP diastolic 41–106
--- NOTE | 2019-08-25 | NUR ---
Condition update/ NPO Pt lying in bed, relaxed. Pt reported pain controlled, no need for pain medication at the moment. Reminded Pt about NPO plan and Liver US in AM. Pt aware and verbalized understanding. Water and food took away from bed side table. PIV x3 at right arm, CDI sites. Pt refused SOB at rest at this time. Continue care.
[2019-08-25] MEDS: IPRATROPIUM BROM 0.5 MG/2.5ML INH SOL NEB SCH ×6 (00:16→23:55)
[2019-08-25] MEDS: HYDROmorphone HCL 2 MG/ML VL IV PRN ×4 (04:20→20:36)
[2019-08-25 04:22] LABS: Basophils # (auto) 0.1 10 ^3/uL (0-0.2); Basophils % (auto) 1.5 % (0.0-2.0); Eosinophils # (auto) 0 10 ^3/uL (0-0.8); Hematocrit 48.3 % (41.0-53.0); Hemoglobin 16.2 g/dL (13.5-17.5); Lymphocytes # (auto) 0.9 10 ^3/uL (0.4-5.4); Lymphocytes % (auto) 9.5 % (10.0-50.0); Mean Corpuscular Hemoglobin 36.5 pg (28.0-32.0); Mean Corpuscular Hgb Conc. 33.6 g/dL (32.0-36.0); Mean Corpuscular Volume 108.5 fL (80.0-100.0); Monocytes # (auto) 0.7 10 ^3/uL (0-1.3); Monocytes % (auto) 7.3 % (0.0-12.0); Neutrophils # (auto) 7.6 10 ^3/uL (1.6-8.6); Neutrophils % (auto) 81.7 % (37.0-80.0); Nucleated Red Blood Cells % 0.1 %; Platelet Count (auto) 143 10^3/uL (140-450); Red Blood Cells 4.45 10^6/uL (4.5-5.90); Red Cell Distribution Width 16.3 % (11.8-14.3); White Blood Cell 9.3 10^3/uL (4.4-10.8)
[2019-08-25 04:41] LABS: INR 1.23 (0.9-1.15); Partial Thromboplastin Time 60.6 sec (23.64-32.05)
[2019-08-25 04:43] LABS: Potassium 3.2 mmol/L (3.5-5.1)
--- NOTE | 2019-08-25 04:45 | NUR ---
PTT result, first therapeutic level PTT 60.6, in therapeutic level, No bolus and no change at this time. Next draw at 09.30am.
[2019-08-25 04:51] LABS: Albumin 2.6 g/dL (3.4-5.0); BUN/Creatinine Ratio 29.3; Bilirubin, Total 12.5 mg/dL (0.2-1.0); Calcium 7.9 mg/dL (8.5-10.1); Total Protein 6.5 g/dL (6.4-8.2)
[2019-08-25] MEDS: HEPARIN DRIP/D5W 100UNITS/ML 250 ML IV SCH ×3 (04:58→20:36)
[2019-08-25] MEDS: AMIODARONE 450mg/250ml AE 250 ML IV SCH ×4 (06:33→21:20)
[2019-08-25] MEDS: BUDESONIDE (INHALATION) 0.5 MG/2 ML NEB NEB SCH ×3 (06:58→19:44)
[2019-08-25] MEDS: dilTIAZem 125mg/125ml BAG KIT 125 ML IV SCH ×2 (07:12→15:59)
[2019-08-25] MEDS ORDERED: POTASSIUM CHL 20 Meq TABLET PO ONE (09:15)
[2019-08-25] MEDS ORDERED: chlordiazePOXIDE HCL 25 MG CAP PO ONE (09:15)
[2019-08-25] MEDS: LACTULOSE 20Gm/30ML SOLN PO SCH ×2 (09:40→22:00)
[2019-08-25] MEDS: THIAMINE HCL 100 MG TAB PO SCH (09:54)
[2019-08-25] MEDS: MAGNESIUM OXIDE 400 MG TAB PO SCH ×2 (09:54→22:23)
[2019-08-25] MEDS: DIGOXIN 0.25 MG TAB PO SCH (09:54)
[2019-08-25] MEDS: METOPROLOL TARTRATE 50 MG TAB PO SCH ×2 (09:54→22:23)
[2019-08-25] MEDS: PANTOPRAZOLE 40 MG TAB PO SCH (09:55)
[2019-08-25] MEDS ORDERED: chlordiazePOXIDE HCL 25 MG CAP PO PRN (10:15)
[2019-08-25] MEDS ORDERED: levoFLOXacin 500MG 100 ML IV ONE (10:15)
--- NOTE | 2019-08-25 10:25 | NUR ---
HEPARIN GTT Received PTT results of 58.0 per protocol will continue current rate of 33ml/hr = 3300units.
--- NOTE | 2019-08-25 10:45 | NUR ---
PHARMACY Multiple calls to pharmacy to send Folic Acid medication and have not received medication yet.
[2019-08-25] MEDS: FOLIC ACID 1 MG in D5W 5% 50 ML IV SCH (11:59)
[2019-08-25] MEDS: chlordiazePOXIDE HCL 25 MG CAP PO SCH ×3 (12:00→23:58)
--- NOTE | 2019-08-25 12:30 | NUR ---
MD Dr. Atkinson at bedside updated on patient condition with no new orders received. MD spoke to patient regarding plan of care and questions/concerns answered by MD.
--- NOTE | 2019-08-25 15:50 | NUR ---
V-TACH Patient had 12 beats of V-tach symptomatic: lightheadness. Will notify
--- NOTE | 2019-08-25 16:00 | NUR ---
MD Dr. Demetrio suero for V-tach beats.
[2019-08-25 16:01] LABS: INR 1.3 (0.9-1.15); Partial Thromboplastin Time 64.3 sec (23.64-32.05)
--- NOTE | 2019-08-25 16:05 | NUR ---
Spoke to Dr. Atkinson via phone to notify of patient having 12 beats of V-tach received new orders, this RN to input into system.
--- NOTE | 2019-08-25 16:10 | NUR ---
HEPARIN GTT Received PTT of 64.3 Heparin GTT to continue current rate per protocol.
[2019-08-25] MEDS ORDERED: MAGNESIUM SULFATE 1GM/100ML 100 ML IV ONE (16:15)
--- NOTE | 2019-08-25 19:30 | NUR ---
OPENING SHIFT RECEIVED REPORT FROM DAY SHIFT RN. ASSUMED CARE OF PATIENT. PATIENT IN BED WATCHING TV WITH NO SIGNS OR SYMPTOMS OF SOB, PAIN OR DISTRESS. CURRENTLY ON 10L OXYMIZER, 02 SAT - 92%. RIGHT HAND IV X2 AND RIGHT WRIST IV - CLEAN/DRY/INTACT. UPDATED PATIENT ON PLAN OF CARE. BED IN LOWEST POSITION, SIDE RAILS UP X2, CALL LIGHT WITHIN REACH. INSTRUCTED PATIENT TO CALL FOR ASSISTANCE. WILL CONTINUE TO MONITOR.
[2019-08-25] MEDS: LEVALBUTEROL HCL 1.25 MG/3 ML NEB NEB PRN ×2 (19:44→23:55)
[2019-08-26] VITALS (90 sets, daily range): BP systolic 89–136; BP diastolic 53–110
[2019-08-26] MEDS: dilTIAZem 125mg/125ml BAG KIT 125 ML IV SCH ×3 (00:52→22:36)
[2019-08-26] MEDS: HYDROmorphone HCL 2 MG/ML VL IV PRN ×5 (00:53→20:13)
[2019-08-26] MEDS: HEPARIN DRIP/D5W 100UNITS/ML 250 ML IV SCH ×3 (03:31→20:30)
[2019-08-26] MEDS: AMIODARONE 450mg/250ml AE 250 ML IV SCH (05:00)
--- NOTE | 2019-08-26 05:25 | NUR ---
MORNING CARE PATIENT REFUSED MORNING CARE AT THIS TIME.
[2019-08-26 06:13] LABS: INR 1.29 (0.9-1.15); Partial Thromboplastin Time 61.1 sec (23.64-32.05)
[2019-08-26] MEDS: LEVALBUTEROL HCL 1.25 MG/3 ML NEB NEB PRN (06:15)
[2019-08-26] MEDS: BUDESONIDE (INHALATION) 0.5 MG/2 ML NEB NEB SCH ×2 (06:15→18:29)
[2019-08-26] MEDS: IPRATROPIUM BROM 0.5 MG/2.5ML INH SOL NEB SCH ×3 (06:15→18:29)
--- NOTE | 2019-08-26 06:15 | NUR ---
Respiratory note: scheduled med neb tx not give. pt refused, no resp diatress noted. pt wanted to sleep. h 84, rr 14, spo3 93% on 9l oxymizer
--- NOTE | 2019-08-26 06:21 | NUR ---
HEPARIN GTT PTT - 61.1, NO CHANGE PER HEPARIN PROTOCOL. WILL CONTINUE TO MONITOR.
[2019-08-26] MEDS: chlordiazePOXIDE HCL 25 MG CAP PO SCH ×3 (06:28→18:25)
[2019-08-26 07:28] LABS: Potassium 3.4 mmol/L (3.5-5.1)
--- NOTE | 2019-08-26 07:28 | NUR ---
END OF SHIFT REPORT GIVEN TO DAY SHIFT RN. CARE ENDORSED.
[2019-08-26 07:31] LABS: BUN/Creatinine Ratio 32.4
[2019-08-26] MEDS ORDERED: POTASSIUM CHL 20 Meq TABLET PO ONE ×2 (08:15→12:30)
--- NOTE | 2019-08-26 09:25 | NUR ---
MAGGI Nguyen COMPOUNDING PHARMACY TECHNICIAN at bedside updated on patient condition with new orders, this RN to input into system. Will implement orders.
[2019-08-26] MEDS: LACTULOSE 20Gm/30ML SOLN PO SCH ×2 (09:30→22:00)
[2019-08-26] MEDS: levoFLOXacin 500MG 100 ML IV SCH (09:36)
[2019-08-26] MEDS: DIGOXIN 0.25 MG TAB PO SCH (09:37)
[2019-08-26] MEDS: METOPROLOL TARTRATE 50 MG TAB PO SCH ×2 (09:37→22:19)
[2019-08-26] MEDS: THIAMINE HCL 100 MG TAB PO SCH (09:37)
[2019-08-26] MEDS: MAGNESIUM OXIDE 400 MG TAB PO SCH ×2 (09:37→22:19)
[2019-08-26] MEDS: AMIODARONE HCL 200 MG TAB PO SCH (09:38)
[2019-08-26] MEDS: PANTOPRAZOLE 40 MG TAB PO SCH (09:38)
[2019-08-26] MEDS: FOLIC ACID 1 MG in D5W 5% 50 ML IV SCH (10:29)
--- NOTE | 2019-08-26 10:30 | NUR ---
PICC LINE/MIDLINE Paged PICC/MIDLINE nurse to notify of MIDLINE order.
--- NOTE | 2019-08-26 10:35 | NUR ---
PICC LINE/MIDLINE Marj RN called back and aware of MIDLINE order and states " Will be there within an hour and doing procedures."
[2019-08-26] MEDS ORDERED: FUROSEMIDE 40 MG/4 ML VIAL IV ONE (11:00)
[2019-08-26 11:13] LABS: Hepatitis A Ab IgM Negative; Hepatitis B Core IgM Negative; Hepatitis B Surface Antigen Negative (Negative); Hepatitis C Antibody Negative (Negative)
[2019-08-26] MEDS ORDERED: LISINOPRIL 10 MG TAB PO ONE (11:15)
--- NOTE | 2019-08-26 11:30 | NUR ---
AMIODARONE GTT Amiodarone GTT turned off per WELDER 2ND SHIFT orders.
--- NOTE | 2019-08-26 12:00 | NUR ---
MD Dr. Knowles at bedside updated on patient condition with no new orders. MD spoke to patient regarding plan of care and questions/concerns answered by MD.
--- NOTE | 2019-08-26 12:15 | NUR ---
ZOL LIFE VEST Zol life vest professional healthcare representative at bedside to speak to patient regarding vest and patient did not want to hear it stating "am overwhelmed at this time and would like you to come back tomorrow." Zoll professional healthcare representative agreed and left.
--- NOTE | 2019-08-26 12:30 | NUR ---
MD Dr. Crowder at bedside updated on patient condition with new orders, MD to input into system. MD spoke to patient regarding plan of care and questions/concerns answered by MD.
--- NOTE | 2019-08-26 12:45 | NUR ---
MEDICATION CLARIFICATION Clarified with Dr. Crowder regarding Potassium order received. MD states "not to give." Patient already received potassium this morning.
--- NOTE | 2019-08-26 13:00 | NUR ---
DISCOMFORT Patient having discomfort to the right hand/wrist area, upon assessment patients have is swollen with no evidence of bruising. IV's checked: good blood return and flushes easily. Awaiting for MIDLINE placement. Informed patient if he would like this RN to insert new IV to left hand. Patient stated " Will wait for MIDLINE placement."
--- NOTE | 2019-08-26 13:10 | NUR ---
PICC LINE/MIDLINE PICC line/midline nurse Marj at bedside.
--- NOTE | 2019-08-26 13:25 | NUR ---
Midline Placement: Patient educated on need for midline placement. All risks and benefits explained and all questions and concerns addresses prior to procedure. 18g/10cm midline inserted via right brachial vein using Ultrasound. Sterile technique utilized. Blood return obtained from lumen and flushed easily with NS using proper technique. Midline secured with saline lock; biodisc and occlusive dressing applied. Primary RN notified. Midline lot #[id number]
--- NOTE | 2019-08-26 14:45 | NUR ---
PAIN Patient stating " pain to the right wrist/hand area." IV's checked good blood return and flushes easily: right hand swollen. Patient given ice pack to apply to area.
--- NOTE | 2019-08-26 15:11 | NUR ---
Nutrition Assessment Notes Please see attached link for complete assessment Est Energy needs ABW 115 [id number] (20-23 kcal/kgBW). Est Protein needs: 92-115 (0.8-1.0 GM/KG abw) Will continue to monitor and reassess prn. Addendum: 08/26/19 at [address] Amended: Links added.
--- NOTE | 2019-08-26 16:38 | NUR ---
DIRECTOR ICU Director of ICU Navya called/spoke to Tamika charge nurse stating "to call MD for downgrade orders we need a bed." Tamika to call Dr. Crowder.
--- NOTE | 2019-08-26 16:40 | NUR ---
DOWNGRADE Charge nurse Tamika called and spoke to Dr. Crowder for downgrade orders. states " Telemetry downgrade: DO NOT TITRATE GTT'S."
--- NOTE | 2019-08-26 17:04 | NUR ---
assessment Patient is a 44 year old male who is in ICU. Per patients father Phyllis prior to admission patient lived home with him and was independent. Per Gerold patient came to ER for coughing up blood. Patient was admitted to ICU. Patients tox screen showed high ETOH level. I will provide resources for ETOH. Patient has no income. Patient has no insurance. Patient has been assessed by [facility]. Patient may qualify for Medi-johnnie if she brings back all her paperwork. I have provided patient with resources for [facility], Dr. Forte, and [facility] urgent care for follow up visits. I have provided patient with a prescription card from community assistance program. Patients post discharge needs to be determined prior to discharge. Addendum: 08/26/19 at 1708 by Lawanda LAUREN Amended: Links added.
[2019-08-26] MEDS: FUROSEMIDE 20 MG/2 ML VIAL IV SCH (18:22)
--- NOTE | 2019-08-26 18:45 | NUR ---
IV DISCONTINUED IV discontinued to the right hand X2, catheter intact, tolerated well.
--- NOTE | 2019-08-26 19:45 | NUR ---
OPENING NOTE RECEIVED REPORT FROM DAY SHIFT RN AND ASSUMED CARE OF PT. PT IS EATING DINNER WHILE SITTING ON THE SIDE OF BED. VITAL SIGNS STABLE WITH NO S/S OF DISTRESS NOTED. HEPARIN AND CARDIZEM GTTS RUNNING PER ORDERS (SEE IV SPREADSHEET). EDUCATED PT ON USE OF CALL LIGHT, SAFETY PRECAUTIONS, AND PLAN OF CARE FOR THE EVENING. PT VERBALIZED UNDERSTANDING. WILL CONTINUE TO MONITOR AND ASSESS PT.
--- NOTE | 2019-08-26 20:13 | NUR ---
RIGHT ARM PAIN ASSESSMENT PT RIGHT ARM IS SWOLLEN, TENDER TO TOUCH, AND SLIGHTLY WARMER THAN LEFT EXTREMITY. PT REPORTS PAIN 9/10 BUT SAYS IT FEELS BETTER THAN YESTERDAY. 20 G IV TO RIGHT WRIST SHOWS NO S/S OF INFILTRATION OR EXTRAVASATION. WILL CONTINUE TO MONITOR AND REASSESS. WILL MAKE MDS AWARE.
--- NOTE | 2019-08-26 22:32 | NUR ---
PT REFUSING BATH AND MARINA CHANGE AT THIS TIME. REQUESTS TO HAVE IT DONE IN AM. WILL FOLLOW THROUGH.
--- NOTE | 2019-08-26 22:39 | NUR ---
CARDIZEM CONTINUED AT SET RATE OF 10 MG/HR PER ROLLER MILL OPERATOR DAYA
[2019-08-27] VITALS (79 sets, daily range): BP systolic 91–139; BP diastolic 40–102
[2019-08-27] MEDS: LEVALBUTEROL HCL 1.25 MG/3 ML NEB NEB PRN ×2 (00:20→19:35)
[2019-08-27] MEDS: IPRATROPIUM BROM 0.5 MG/2.5ML INH SOL NEB SCH ×4 (00:20→19:35)
[2019-08-27] MEDS: chlordiazePOXIDE HCL 25 MG CAP PO SCH ×5 (00:21→23:51)
[2019-08-27] MEDS: HYDROmorphone HCL 2 MG/ML VL IV PRN ×5 (00:22→19:54)
[2019-08-27 04:17] LABS: Basophils # (auto) 0 10 ^3/uL (0-0.2); Basophils % (auto) 0.5 % (0.0-2.0); Eosinophils # (auto) 0.1 10 ^3/uL (0-0.8); Eosinophils % (auto) 0.8 % (0.0-7.0); Hematocrit 46.3 % (41.0-53.0); Hemoglobin 15.6 g/dL (13.5-17.5); Lymphocytes # (auto) 0.7 10 ^3/uL (0.4-5.4); Lymphocytes % (auto) 9.8 % (10.0-50.0); Mean Corpuscular Hemoglobin 36.7 pg (28.0-32.0); Mean Corpuscular Hgb Conc. 33.7 g/dL (32.0-36.0); Mean Corpuscular Volume 108.8 fL (80.0-100.0); Monocytes # (auto) 0.9 10 ^3/uL (0-1.3); Neutrophils # (auto) 5.5 10 ^3/uL (1.6-8.6); Neutrophils % (auto) 76.9 % (37.0-80.0); Nucleated Red Blood Cells % 0.1 %; Platelet Count (auto) 148 10^3/uL (140-450); Red Blood Cells 4.26 10^6/uL (4.5-5.90); Red Cell Distribution Width 16.4 % (11.8-14.3); White Blood Cell 7.1 10^3/uL (4.4-10.8)
[2019-08-27] MEDS: HEPARIN DRIP/D5W 100UNITS/ML 250 ML IV SCH (04:21)
[2019-08-27 04:24] LABS: INR 1.3 (0.9-1.15); Partial Thromboplastin Time 69.5 sec (23.64-32.05)
[2019-08-27 04:39] LABS: Albumin 2.2 g/dL (3.4-5.0); BUN/Creatinine Ratio 24.7; Bilirubin, Total 10.8 mg/dL (0.2-1.0); Calcium 7.9 mg/dL (8.5-10.1); Total Protein 6.3 g/dL (6.4-8.2)
--- NOTE | 2019-08-27 04:48 | NUR ---
HEPARIN GTT LATEST APTT 69.5. NO CHANGE AND NO BOLUS. WILL CONTINUE AT 33 ML/HR.
--- NOTE | 2019-08-27 06:00 | NUR ---
CALLED HOSPITALIST FOR PTS LATEST K LEVEL OF 3.0. NEW ORDERS RECEIVED, NOTED IN CHART.
--- NOTE | 2019-08-27 06:15 | NUR ---
PT REFUSED LIBRIUM. DENIES ANY ALCOHOL WITHDRAWAL SYMPTOMS.
[2019-08-27] MEDS: POTASSIUM CHL 20MEQ/100ML 100 ML IV SCH ×2 (06:21→08:31)
[2019-08-27] MEDS: FUROSEMIDE 20 MG/2 ML VIAL IV SCH ×2 (06:22→18:00)
[2019-08-27] MEDS: BUDESONIDE (INHALATION) 0.5 MG/2 ML NEB NEB SCH ×2 (06:36→19:35)
--- NOTE | 2019-08-27 06:36 | NUR ---
Respiratory note: PATIENT DENIED 0600 MED-NEB TX AT THIS TIME. PATIENT WAS IN NO ACUTE RESPIRATORY DISTRESS AT TIME OF REFUSAL. BREATH SOUNDS CLEAR T/O, SPO2 98% 2LPM NASAL CANNULA. KATHERINE GARZON MADE AWARE OF REFUSAL.
--- NOTE | 2019-08-27 08:45 | NUR ---
ELIMINATION Patient requested to get out of bed and bedside commode in room. Patient had a bowel movement. Patient tolerated well.
--- NOTE | 2019-08-27 09:00 | NUR ---
ACTIVITY Patient sitting up in chair. Vital signs stable.
[2019-08-27] MEDS: levoFLOXacin 500MG 100 ML IV SCH (09:26)
[2019-08-27] MEDS: LACTULOSE 20Gm/30ML SOLN PO SCH ×2 (09:26→21:37)
[2019-08-27] MEDS: DIGOXIN 0.25 MG TAB PO SCH (09:29)
[2019-08-27] MEDS: MAGNESIUM OXIDE 400 MG TAB PO SCH ×2 (09:29→21:34)
[2019-08-27] MEDS: THIAMINE HCL 100 MG TAB PO SCH (09:29)
[2019-08-27] MEDS: AMIODARONE HCL 200 MG TAB PO SCH (09:30)
--- NOTE | 2019-08-27 09:30 | NUR ---
VAULT CUSTODIAN Wendy VAULT CUSTODIAN at bedside updated on patient condition with new orders, VAULT CUSTODIAN to input into system. VAULT CUSTODIAN spoke to patient regarding plan of care and explained to patient importance/benefits of Zoll vest. Questions/concerns answered by VAULT CUSTODIAN.
[2019-08-27] MEDS: METOPROLOL TARTRATE 50 MG TAB PO SCH ×2 (09:31→21:36)
[2019-08-27] MEDS: PANTOPRAZOLE 40 MG TAB PO SCH (09:31)
[2019-08-27] MEDS: LISINOPRIL 10 MG TAB PO SCH (09:31)
[2019-08-27] MEDS: FOLIC ACID 1 MG in D5W 5% 50 ML IV SCH (10:00)
[2019-08-27] MEDS: dilTIAZem 120MG ER CAP PO SCH (10:30)
--- NOTE | 2019-08-27 11:46 | NUR ---
Respiratory note: PATIENT REFUSED 1200 MED-NEB TX AT THIS TIME STATING THAT HE FEELS GREAT AND HIS BREATHING FEELS FINE. HE WAS IN NO ACUTE RESPIRATORY DISTRESS AT TIME OF REFUSAL. RN JEAN MADE AWARE OF REFUSAL.
--- NOTE | 2019-08-27 14:00 | NUR ---
MD Dr. Crowder at bedside updated on patient condition with new orders, MD to input into system. MD spoke to patient regarding plan of care and questions/concerns answered.
--- NOTE | 2019-08-27 16:30 | NUR ---
PHYSICAL THERAPY Physical therapy at bedside, patient was able to ambulate around nurses station X3, patient tolerated well. Vital signs stable.
--- NOTE | 2019-08-27 19:40 | NUR ---
OPENING NOTE RECEIVED REPORT ON PT AND ASSUMED CARE. PT IS RESTING IN BED WITH RT AT BEDSIDE GIVING BREATHING TX. VITAL SIGNS STABLE, RUNNING A FIB WITH NO S/S OF DISTRESS NOTED. PT IV IS HEP LOCKED. PT DOES COMPLAIN OF PAIN 9/10 IN RIGHT HAND AND CHRONIC BACK PAIN. WILL MEDICATE PER ORDERS. FALL PRECAUTIONS IN PLACE AND CALL LIGHT WITHIN REACH. PT IS AOX4 AND ABLE TO AMBULATE SAFELY.
--- NOTE | 2019-08-27 20:30 | NUR ---
MAGGI OLGUIN ON UNIT. MADE HIM AWARE OF PTS LATEST 3.3 K. NEW ORDERS RECEIVED, NOTED IN CHART.
[2019-08-27] MEDS ORDERED: POTASSIUM CHL 20 Meq TABLET PO ONE (20:45)
[2019-08-27] MEDS: HYDROcodone-ACET 5/325MG TAB PO PRN (21:33)
[2019-08-27] MEDS: APIXABAN 5 MG TAB PO SCH (21:34)
--- NOTE | 2019-08-27 22:15 | NUR ---
RESPIRATORY CULTURE SENT.
[2019-08-28] VITALS (7 sets, daily range): BP systolic 102–125; BP diastolic 57–85
[2019-08-28] MEDS: IPRATROPIUM BROM 0.5 MG/2.5ML INH SOL NEB SCH ×5 (00:19→23:49)
[2019-08-28] MEDS: LEVALBUTEROL HCL 1.25 MG/3 ML NEB NEB PRN (00:19)
[2019-08-28] MEDS: HYDROmorphone HCL 2 MG/ML VL IV PRN ×4 (00:46→20:31)
[2019-08-28 04:31] LABS: Potassium 3.6 mmol/L (3.5-5.1)
[2019-08-28 04:39] LABS: Albumin 2.4 g/dL (3.4-5.0); BUN/Creatinine Ratio 23.9; Bilirubin, Total 7.2 mg/dL (0.2-1.0); Calcium 8.4 mg/dL (8.5-10.1); Total Protein 6.6 g/dL (6.4-8.2)
--- NOTE | 2019-08-28 05:58 | NUR ---
Transfer from ICU to room 223B Assumed care of patient, awake and alert x 4. No S/S of distress/SOB. Patient on 8 l/min oxymizer.Bed is in lowest position and locked. Call light within reach. Board updated. Patient attached to tele box number 45 and rhythm is atrial fibrillation in 100s. Instructed on POC and to call for assist PRN, will continue to monitor for changes Q1hr and PRN.
[2019-08-28] MEDS: chlordiazePOXIDE HCL 25 MG CAP PO SCH ×3 (06:00→18:00)
--- NOTE | 2019-08-28 06:03 | NUR ---
PT TRANSFER TO TELE PT TRANSFERRED TO TELE VIA WHEELCHAIR WITH MONITOR APPLIED AND 8L OXYMIZER, ASSISTED BY KATHERINE KELLEY. PT IS STABLE WITH NO S/S OF DISTRESS NOTED. REPORT GIVEN TO KATHERINE DAMICO. CHART GIVEN TO GROUND HAND. ALL BELONGINGS WITH PATIENT AND PLACED IN BEDSIDE CABINET WHEN PT ARRIVED TO 223B ON [facility]
[2019-08-28] MEDS: FUROSEMIDE 20 MG/2 ML VIAL IV SCH ×2 (06:13→17:59)
--- NOTE | 2019-08-28 06:24 | NUR ---
IV removal IV site to right hand discontinued with clean technique, catheter fully intact. Pressure dressing applied to site. Patient tolerated well.
[2019-08-28] MEDS: BUDESONIDE (INHALATION) 0.5 MG/2 ML NEB NEB SCH ×3 (07:21→18:23)
--- NOTE | 2019-08-28 07:21 | NUR ---
Respiratory note: PT REFUSED MEDNEB TX AT THIS TIME, SAYS HE IS FEELING TIRED. HR 80, RR 18, SPO2 95% ON 6LPM OXYMIZER. LUNG SOUNDS DIMINISHED. NO S/S OF RESPIRATORY DISTRESS NOTED AT THIS TIME. ADVISED PT TO CALL FOR RT IF HE CHANGES HIS MIND. WILL RETURN FOR NEXT SCHEDULED TX.
[2019-08-28] MEDS: PANTOPRAZOLE 40 MG TAB PO SCH (09:28)
[2019-08-28] MEDS: LACTULOSE 20Gm/30ML SOLN PO SCH ×2 (09:28→22:00)
[2019-08-28] MEDS: levoFLOXacin 500MG 100 ML IV SCH (09:28)
[2019-08-28] MEDS: MAGNESIUM OXIDE 400 MG TAB PO SCH ×2 (09:29→22:12)
[2019-08-28] MEDS: AMIODARONE HCL 200 MG TAB PO SCH (09:29)
[2019-08-28] MEDS: dilTIAZem 120MG ER CAP PO SCH (09:30)
[2019-08-28] MEDS: METOPROLOL TARTRATE 50 MG TAB PO SCH ×2 (09:31→22:12)
[2019-08-28] MEDS: APIXABAN 5 MG TAB PO SCH ×2 (09:31→22:12)
[2019-08-28] MEDS: THIAMINE HCL 100 MG TAB PO SCH (09:31)
[2019-08-28] MEDS: LISINOPRIL 10 MG TAB PO SCH (09:33)
--- NOTE | 2019-08-28 09:33 | NUR ---
AM LISINOPRIL HELD, PT HAS MANY BP MEDS, DID NOT WANT TO GIVE TOO MANY. LACTULOSE HELD, PT REPORTS HIS LAST BM WAS YESTERDAY AND DOES NOT NEED HELP GOING.
[2019-08-28] MEDS ORDERED: THIAMINE HCL 100 MG TAB PO SCH (10:00)
--- NOTE | 2019-08-28 10:34 | NUR ---
SPOKE WITH DR NIEVES. REPORTS TO HAVE RESPIRATORY THERAPY TITRATE PT 02 DOWN, AND HAVE PHYSICAL THERAPY WALK WITH PT. CALLED PBX AND PAGED RT FOR PATIENT. PATIENT REPORT S HE HAS AMBULATED TO RESTROOM YESTERDAY, OFF 02 W/O DISTRESS. ASKED PT TO USE BEDSIDE COMMODE BECAUSE OXYGEN TUBING DOES NOT REACH TO BATHROOM, PT REFUSED. HE REPORTS,"I DON'T HAVE ANY PROBLEMS BREATHING WHEN I GO TO THE BATHROOM."
--- NOTE | 2019-08-28 11:21 | NUR ---
RT NOTE: PT. REFUSED BREATHING TX. AT THIS TIME. PT. STATES HE FEELS HE DOESN'T NEED IT. NO S/S OF RESPIRATORY DISTRESS NOTED. PT. O2 TITRATED DOWN TON 4L OXYMIZER. PT. TOLERATING WELL. PT. HR 59, RR 16, POX 95%. BREATH SOUNDS ARE CLEAR/DIMINISHED T/O. PT. ADBVISED TO NOTIFY RN IF BREATHIN
--- NOTE | 2019-08-28 11:23 | NUR ---
RT NOTE: PT. ADVISED TO NOTIFY RN IF BREATHING TX. IS NEEDED. PT. VERBALIZED UNDERSTANDING.
--- NOTE | 2019-08-28 12:00 | NUR ---
PT REQUESTS DILAUDID PRN, JUST GAVE PATIENT LIBRIUM SCHEDULED. NOTIFIED PATIENT UNABLE TO GIVE DILAUDID AT THIS TIME DUE TO POSSIBILITY OF OVER MEDICATING HIM. OFFERED ANOTHER PAIN MED INSTEAD, PT REFUSED. PT REPORTS HE WILL WAIT FOR DILAUDID.
[2019-08-28] MEDS: DIGOXIN 0.25 MG TAB PO SCH (12:21)
--- NOTE | 2019-08-28 20:00 | NUR ---
RECEIVED PATIENT FROM DAY SHIFT RN. PATIENT RESTING IN BED. NO S/S OF DISTRESS NOTED. C/O PAIN @ 01/24. WILL ADMINISTER PAIN MEDICATION ORDERED. REINFORCED PATIENT ON FLUID RESTRICTION AND STRICT I & O. PATIENT VERBALIZED UNDERSTANDING. EMPTIED URINAL 500ML. POC INSTRUCTED AND ENCOURAGED PATIENT TO CALL FOR VIDEO TAPE TRANSFERRER IF NEEDED. BED IN LOWEST POSITION WITH SIDE RAILS UP X 2. CALL PASTOR WITHIN REACH. CONTINUE TO MONITOR FOR CHANGES Q1H AND PRN.
--- NOTE | 2019-08-28 20:32 | NUR ---
MEDICATED PATIENT FOR PAIN @ 10/10 ORDERED. CONTINUE TO MONITOR.
--- NOTE | 2019-08-28 21:00 | NUR ---
REASSESSED PAIN 09/24. CONTINUE TO MONITOR.
[2019-08-28] MEDS: TEMAZEPAM 15 MG CAP PO PRN (22:13)
[2019-08-29] MEDS: HYDROmorphone HCL 2 MG/ML VL IV PRN ×5 (00:25→20:07)
--- NOTE | 2019-08-29 00:25 | NUR ---
MEDICATED PATIENT FOR PAIN @ 01/24 ORDERED. CONTINUE TO MONITOR. Addendum: 08/29/19 at 0026 by Vanessa Becker RN PATIENT REFUSED TO TAKE SCHEDULED LIBRIUM AT THIS TIME.
--- NOTE | 2019-08-29 00:55 | NUR ---
REASSESSED PAIN. PATIENT RESTING IN BED. NO S/S OF DISTRESS NOTED.CONTINUE CARE.
[2019-08-29 05:30] VITALS: BP 118/72
[2019-08-29] MEDS: chlordiazePOXIDE HCL 25 MG CAP PO SCH ×2 (06:30)
[2019-08-29] MEDS: FUROSEMIDE 20 MG/2 ML VIAL IV SCH ×2 (06:33→18:00)
--- NOTE | 2019-08-29 08:09 | NUR ---
PT. REFUSED MN. TX. AT THIS TIME, PT. STATES THAT HE IS BREATHING FINE RIGHT NOW AND DOESN'T NEED A TX.. PT. STATES HE WILL TAKE THE NEXT ONE. NO RESP. DISTRESS OR SOB NOTED AT THIS TIME. HR=66, RR=18, SP02=97% ON 4LPM NC. NO TX. GIVEN AT THIS TIME.
[2019-08-29] MEDS: IPRATROPIUM BROM 0.5 MG/2.5ML INH SOL NEB SCH ×3 (08:10→19:49)
[2019-08-29] MEDS: LEVALBUTEROL HCL 1.25 MG/3 ML NEB NEB PRN ×2 (08:12→19:49)
[2019-08-29 08:33] VITALS: BP 113/59
[2019-08-29] MEDS: LACTULOSE 20Gm/30ML SOLN PO SCH ×2 (10:00→22:00)
[2019-08-29] MEDS: levoFLOXacin 500MG 100 ML IV SCH (10:09)
[2019-08-29] MEDS: THIAMINE HCL 100 MG TAB PO SCH (10:10)
[2019-08-29] MEDS: MAGNESIUM OXIDE 400 MG TAB PO SCH ×2 (10:11→22:03)
[2019-08-29] MEDS: PANTOPRAZOLE 40 MG TAB PO SCH (10:11)
[2019-08-29] MEDS: AMIODARONE HCL 200 MG TAB PO SCH (10:13)
[2019-08-29] MEDS: APIXABAN 5 MG TAB PO SCH ×2 (10:13→22:03)
[2019-08-29] MEDS: DIGOXIN 0.25 MG TAB PO SCH (10:14)
[2019-08-29] MEDS ORDERED: chlordiazePOXIDE HCL 25 MG CAP PO PRN ×2 (10:15→11:00)
[2019-08-29] MEDS: METOPROLOL TARTRATE 50 MG TAB PO SCH ×2 (10:15→22:03)
[2019-08-29] MEDS: LISINOPRIL 10 MG TAB PO SCH (10:18)
[2019-08-29] MEDS: HYDROcodone-ACET 5/325MG TAB PO PRN ×3 (10:32→22:03)
[2019-08-29] MEDS ORDERED: dilTIAZem HCL 180MG ER CAP PO SCH (11:00)
[2019-08-29 12:20] VITALS: BP 112/62
--- NOTE | 2019-08-29 13:25 | NUR ---
PT. REFUSED MN. TX. , PT. STATES HIS BREATHING IS FINE AND DOESN'T NEED AT TX. AT THIS TIME. PT. IS ON 4LPM OXYMIZER SATS ARE 97%. DECREASED TO 3LPM OXYMIZER AT THIS TIME, SATS ARE 95%.
--- NOTE | 2019-08-29 13:36 | NUR ---
Nutrition Assessment Notes Please refer to link for full assessment notes. Est Energy needs: [id number] kcals (14-18 kcal/kgBW) Est Protein needs: 112-140 gms/day (0.8-1.0 gm/kgBW) Will continue to monitor and reassess prn. Addendum: 08/29/19 at [address] Amended: Links added.
[2019-08-29 16:48] VITALS: BP 94/54
[2019-08-29] MEDS: BUDESONIDE (INHALATION) 0.5 MG/2 ML NEB NEB SCH (19:49)
--- NOTE | 2019-08-29 19:53 | NUR ---
RT NOTE PT WAS SEEN BY RT FOR HHN TX. PT TOLERATES WELL VIA MOUTHPIECE. NO ADVERSE REACTION NOTED. PT HAS A PRODUCTIVE COUGH NOTED. CONT ORDERED Addendum: 08/29/19 at 1953 by Melissa Paniagua RT Amended: Links added.
--- NOTE | 2019-08-29 20:08 | NUR ---
PATIENT'S BP 103/71, HR 106, MEDICATED PATIENT FOR PAIN @ 10/10 ORDERED. CONTINUE TO MONITOR.
[2019-08-29 21:41] VITALS: BP 125/55
[2019-08-29] MEDS: TEMAZEPAM 15 MG CAP PO PRN (22:02)
--- NOTE | 2019-08-29 22:05 | NUR ---
MEDICATED PATIENT FOR PAIN @ 10/10, PATIENT PREFERRED NORCO IN BETWEEN. CONTINUE TO MONITOR.
--- NOTE | 2019-08-29 23:00 | NUR ---
REASSESSED PAIN 12/25. CONTINUE TO MONITOR.
[2019-08-30] MEDS: HYDROmorphone HCL 2 MG/ML VL IV PRN ×5 (00:12→17:28)
--- NOTE | 2019-08-30 00:13 | NUR ---
MEDICATED PATIENT FOR PAIN @ 10/10 ORDERED. CONTINUE TO MONITOR.
--- NOTE | 2019-08-30 00:34 | NUR ---
REASSESSED PAIN 10/24. CONTINUE TO MONITOR.
[2019-08-30] MEDS: IPRATROPIUM BROM 0.5 MG/2.5ML INH SOL NEB SCH ×3 (00:43→12:07)
--- NOTE | 2019-08-30 00:43 | NUR ---
RT NOTE PT W2AS SEEN BY RT FOR HHN TX. PT IS SLEEPING BUT EASILY AWAKENED. PT STATES HE DOES NOT WANT TX AT THIS TIME. HR 53, RR 16, BS CLEAR/DIM, POX 97% ON 3L OXYMIZER. NO SOB OR DISTRESS NOTED. NO TX GIVEN. KATHERINE BURNS NOTIFIED. PT AWARE TO CALL IF TX NEEDED BEFORE NEXT SCHEDULED TIME. Addendum: 08/30/19 at 0113 by Melissa Paniagua RT Amended: Links added.
--- NOTE | 2019-08-30 02:47 | NUR ---
PATIENT SLEEPING. NO S/S OF DISTRESS NOTED. CONTINUE CARE.
--- NOTE | 2019-08-30 03:15 | NUR ---
PATIENT WOKE UP TO BATHROOM AND BACK TO BED WITH STEADY GAIT, HR UP TO 150S, PATIENT DENIED ANY CHEST PAIN AND SOB, ONLY C/O BACK PAIN. PUT PATIENT BACK TO OXYGEN, AND WILL COME BACK FOR PAIN MEDICATION LATER WHEN THE TIME IS DUE. PATIENT VERBALIZED UNDERSTANDING. HR BACK TO 90S TO 110S. CONTINUE TO MONITOR.
--- NOTE | 2019-08-30 04:08 | NUR ---
MEDICATED PATIENT FOR PAIN @ 10/10 ORDERED. CONTINUE TO MONITOR.
[2019-08-30 04:48] VITALS: BP 104/58
[2019-08-30 05:47] LABS: Basophils # (auto) 0.1 10 ^3/uL (0-0.2); Basophils % (auto) 0.8 % (0.0-2.0); Eosinophils # (auto) 0.1 10 ^3/uL (0-0.8); Eosinophils % (auto) 0.8 % (0.0-7.0); Hematocrit 53.6 % (41.0-53.0); Hemoglobin 17.7 g/dL (13.5-17.5); Lymphocytes # (auto) 0.9 10 ^3/uL (0.4-5.4); Lymphocytes % (auto) 10.6 % (10.0-50.0); Mean Corpuscular Hemoglobin 36.6 pg (28.0-32.0); Mean Corpuscular Hgb Conc. 33.1 g/dL (32.0-36.0); Mean Corpuscular Volume 110.7 fL (80.0-100.0); Monocytes # (auto) 1.1 10 ^3/uL (0-1.3); Monocytes % (auto) 13.2 % (0.0-12.0); Neutrophils # (auto) 6.1 10 ^3/uL (1.6-8.6); Neutrophils % (auto) 74.6 % (37.0-80.0); Nucleated Red Blood Cells % 0.1 %; Platelet Count (auto) 194 10^3/uL (140-450); Red Blood Cells 4.84 10^6/uL (4.5-5.90); Red Cell Distribution Width 16.3 % (11.8-14.3); White Blood Cell 8.1 10^3/uL (4.4-10.8)
[2019-08-30 06:08] LABS: Alanine Aminotransferase 127 U/L (16-61); Albumin 2.2 g/dL (3.4-5.0); Anion Gap 6 (5-15); Aspartate Aminotransferase 177 U/L (15-37); BUN/Creatinine Ratio 24.6; Blood Urea Nitrogen 15 mg/dL (7-18); Calcium 8.6 mg/dL (8.5-10.1); Carbon Dioxide 30 mmol/L (21-32); Chloride 100 mmol/L (98-107); GFR African American 183 mL/min; GFR Non-African American 151 mL/min; Glucose 98 mg/dL (74-106); Potassium 3.9 mmol/L (3.5-5.1); Sodium 136 mmol/L (136-145)
[2019-08-30 06:11] LABS: Alkaline Phosphatase 93 U/L (45-117); Bilirubin, Total 4.4 mg/dL (0.2-1.0); Total Protein 6.6 g/dL (6.4-8.2)
[2019-08-30] MEDS: FUROSEMIDE 20 MG/2 ML VIAL IV SCH (06:20)
[2019-08-30] MEDS: LEVALBUTEROL HCL 1.25 MG/3 ML NEB NEB PRN (06:49)
[2019-08-30] MEDS: BUDESONIDE (INHALATION) 0.5 MG/2 ML NEB NEB SCH (06:49)
--- NOTE | 2019-08-30 07:20 | NUR ---
Opening Shift Note Report received and assumed care of patient, awake and alert. No S/S of distress/Sob. Instructed on POC and nursing routines,call light within reach patient reminded instructed to call for assistance,patient verbalized understanding.will continue to monitor for changes Q1hr and PRN.
[2019-08-30 08:31] VITALS: BP 103/59
--- NOTE | 2019-08-30 10:34 | NUR ---
PT Patient pleasantly refused to be OOB or ambulate with c/o fatigue and lack of sleep but stated he has been ambulating by himself with no AD. KATHERINE Montanez was notified on patient's refusal. Addendum: 08/30/19 at 1036 by PIO RAMOS PTT Amended: Links added.
[2019-08-30] MEDS: levoFLOXacin 500MG 100 ML IV SCH (11:22)
[2019-08-30] MEDS: LACTULOSE 20Gm/30ML SOLN PO SCH ×2 (11:22→11:29)
[2019-08-30] MEDS: APIXABAN 5 MG TAB PO SCH (11:23)
[2019-08-30] MEDS: THIAMINE HCL 100 MG TAB PO SCH (11:23)
[2019-08-30] MEDS: MAGNESIUM OXIDE 400 MG TAB PO SCH (11:23)
[2019-08-30] MEDS: AMIODARONE HCL 200 MG TAB PO SCH (11:23)
[2019-08-30] MEDS: PANTOPRAZOLE 40 MG TAB PO SCH (11:24)
[2019-08-30] MEDS: LISINOPRIL 10 MG TAB PO SCH (11:24)
[2019-08-30] MEDS: DIGOXIN 0.25 MG TAB PO SCH (11:25)
[2019-08-30] MEDS: METOPROLOL TARTRATE 50 MG TAB PO SCH (11:26)
--- NOTE | 2019-08-30 12:15 | NUR ---
MD VISIT DR. LANCE HERE TO SEE AND EXAMINED PATIENT,RECEIVED ORDER FOR DISCHARGE.
[2019-08-30 12:43] VITALS: BP 119/58
[2019-08-30 15:57] VITALS: BP 118/56
[2019-08-30] MEDS: HYDROcodone-ACET 5/325MG TAB PO PRN (16:09)
--- NOTE | 2019-08-30 17:28 | NUR ---
C/O PAIN RIGHT ARM,LEG AND BACK,REQUESTED FOR DILAUDID, STATED WILL HELP HIM WITH PAIN DURING TRAVEL HOME,IT TAKES 2 HOURS FOR HIM TO GET HOME,MEDICATION GIVEN SEE eMAR.
--- NOTE | 2019-08-30 18:45 | NUR ---
Discharge instructions given as ordered. Encourage to follow up with PMD as instructed. All questions and concerns addressed. Patient verbalized understanding. Medication reconciliation form completed and copy given to patient. Home medications held in Pharmacy returned to patient,Mid line IV to right forearm removed with catheter intact, pressure dressing applied, Telemetry unit returned to ICU. Patient taken to vehicle via wheelchair with all personal belongings, accompanied by staff and family member. No distress noted at time of departure.
== END 2019-08-30 18:45 | disposition home or self-care (01) | DRG 175 ==
LOC: ER 14:47 → EDBD 14:47 → TELE 14:48 → ICU WEST 23:30 → TELE-CENTR 08-28 06:01
PROVIDERS: ADMIT Hospitalist; ATTEND Internal Medicine
DX: I26.99 Other pulmonary embolism without acute cor pulmonale (principal); J96.21 Acute and chronic respiratory failure with hypoxia; I50.43 Acute on chronic combined systolic (congestive) and diastolic (congestive) heart failure; E44.0 Moderate protein-calorie malnutrition; I47.1 Supraventricular tachycardia; J44.1 Chronic obstructive pulmonary disease with (acute) exacerbation; R04.2 Hemoptysis; I42.0 Dilated cardiomyopathy; D69.6 Thrombocytopenia, unspecified; D75.1 Secondary polycythemia; E83.42 Hypomagnesemia; I27.20 Pulmonary hypertension, unspecified; I48.91 Unspecified atrial fibrillation; I11.0 Hypertensive heart disease with heart failure; K70.40 Alcoholic hepatic failure without coma; E66.9 Obesity, unspecified; E87.6 Hypokalemia; F17.210 Nicotine dependence, cigarettes, uncomplicated; R00.1 Bradycardia, unspecified; Z68.39 Body mass index [BMI] 39.0-39.9, adult; Z79.01 Long term (current) use of anticoagulants; Z79.899 Other long term (current) drug therapy; Z82.49 Family history of ischemic heart disease and other diseases of the circulatory system
CPT/HCPCS: 36415; 71045; 71046; 71275; 76705; 80048; 80053; 80061; 80074; 80162; 80307; 81001; 82140; 82550; 82728; 83036; 83735; 83880; 84100; 84132; 84443; 84484; 85025; 85379; 85610; 85730; 87070; 87081; 87205; 93005; 93306; 93970; 93971; 94640; 97116; 97530; 99291; C9113; G0378; J1885; J1956; J3480; J3490; J7060

== ENCOUNTER 2019-09-29 19:56 | Inpatient (IN) | payer OTHER, MEDICAID ==
[~2019-09-29] VITALS: Ht 190.5 cm; Wt 136.1 kg
[~2019-09-29 19:56] MED LIST changes: -DOXYCYCLINE 100MG/250ML 250 ML IV SCH; +FLUT500M2 INH
[2019-09-29] MEDS ORDERED: ONDANSETRON HCL 4 MG/2 ML VIAL IV ONE (20:15)
[2019-09-29] MEDS ORDERED: MORPHINE SULFATE 4 MG/ML SYR/VIAL IV ONE ×2 (20:15→23:00)
[2019-09-29] MEDS ORDERED: ALBUTEROL SULF 2.5 MG/0.5ML(0.5%) NEB SOLN NEB ONE ×2 (20:30→22:30)
[2019-09-29] MEDS ORDERED: IPRATROPIUM BROM 0.5 MG/2.5ML INH SOL NEB ONE ×2 (20:30→22:30)
[2019-09-29 21:20] LABS: Basophils # (auto) 0.1 10 ^3/uL (0-0.2); Hematocrit 48.6 % (41.0-53.0); Hemoglobin 16.4 g/dL (13.5-17.5); Lymphocytes # (auto) 1.2 10 ^3/uL (0.4-5.4); Monocytes % (auto) 10.1 % (0.0-12.0); Nucleated Red Blood Cells % 0.1 %
[2019-09-29 21:22] LABS: Basophils % (auto) 0.7 % (0.0-2.0); Eosinophils # (auto) 0.1 10 ^3/uL (0-0.8); Eosinophils % (auto) 0.5 % (0.0-7.0); Mean Corpuscular Hemoglobin 36.3 pg (28.0-32.0); Mean Corpuscular Hgb Conc. 33.8 g/dL (32.0-36.0); Mean Corpuscular Volume 107.1 fL (80.0-100.0); Neutrophils # (auto) 7.2 10 ^3/uL (1.6-8.6); Neutrophils % (auto) 75.7 % (37.0-80.0); Platelet Count (auto) 125 10^3/uL (140-450); Red Blood Cells 4.53 10^6/uL (4.5-5.90); Red Cell Distribution Width 16.9 % (11.8-14.3); White Blood Cell 9.5 10^3/uL (4.4-10.8)
[2019-09-29 21:34] LABS: INR 1.14 (0.9-1.15); Partial Thromboplastin Time 26.2 sec (23.64-32.05)
[2019-09-29 21:41] LABS: Calcium 6.9 mg/dL (8.5-10.1); Magnesium 1.4 mg/dL (1.6-2.6)
[2019-09-29 21:51] LABS: Bilirubin, Total 1.7 mg/dL (0.2-1.0); Total Protein 7.5 g/dL (6.4-8.2)
[2019-09-29 21:55] LABS: Potassium 2.8 mmol/L (3.5-5.1)
[2019-09-29 22:20] LABS: BUN/Creatinine Ratio 14.5
[2019-09-29] MEDS ORDERED: POTASSIUM EFFERVESENT TAB 25 MEQ PO ONE (22:30)
[2019-09-29] MEDS ORDERED: methylPREDNISolone SOD SUCC 125 MG/2 ML VL IV ONE (22:30)
[2019-09-29] MEDS ORDERED: POTASSIUM CHL 20MEQ/100ML 100 ML IV ONE (22:30)
[2019-09-30] MEDS ORDERED: HYDROmorphone HCL 2 MG/ML VL IV ONE ×5 (00:15→07:45)
[2019-09-30] MEDS ORDERED: IOHEXOL 350 MG/ML 100ML IJ ONE (00:39)
[2019-09-30] MEDS ORDERED: ONDANSETRON HCL 4 MG/2 ML VIAL IV PRN (00:45)
[2019-09-30] MEDS ORDERED: MORPHINE SULF INJ 2 MG/ML SYRINGE 1ML IV PRN (00:45)
[2019-09-30] MEDS ORDERED: ACETAMINOPHEN 325 MG TAB PO PRN (00:45)
[2019-09-30] MEDS ORDERED: NITROGLYCERIN 0.4 MG SL TAB SL PRN (00:45)
[2019-09-30] MEDS ORDERED: METOPROLOL TARTRATE 1MG/1ML-5ML VIAL IV PRN (00:45)
[2019-09-30 01:36] VITALS: BP 111/76
[2019-09-30] MEDS: ALBUTEROL SULF 2.5 MG/0.5ML(0.5%) NEB SOLN NEB SCH ×2 (04:36→06:15)
[2019-09-30] MEDS: IPRATROPIUM BROM 0.5 MG/2.5ML INH SOL NEB SCH ×2 (04:36→06:15)
[2019-09-30] MEDS ORDERED: HEPARIN DRIP/D5W 100UNITS/ML 250 ML IV SCH (04:37)
[2019-09-30] MEDS ORDERED: HEPARIN SODIUM (PORCINE) 5000 UNITS/ML 1ML VIAL IV ONE (04:45)
[2019-09-30] MEDS ORDERED: SODIUM CHLOR 0.9% PF (SALINE LOCK) 10ML VIAL/SYR IV SCH (06:00)
[2019-09-30 06:14] LABS: Basophils # (auto) 0 10 ^3/uL (0-0.2); Basophils % (auto) 0.2 % (0.0-2.0); Eosinophils # (auto) 0 10 ^3/uL (0-0.8); Mean Corpuscular Volume 109.4 fL (80.0-100.0); Nucleated Red Blood Cells % 0.1 %; Red Cell Distribution Width 16.8 % (11.8-14.3)
[2019-09-30 06:17] LABS: Hematocrit 49.8 % (41.0-53.0); Hemoglobin 16.5 g/dL (13.5-17.5); Lymphocytes # (auto) 0.6 10 ^3/uL (0.4-5.4); Lymphocytes % (auto) 8.5 % (10.0-50.0); Mean Corpuscular Hemoglobin 36.3 pg (28.0-32.0); Mean Corpuscular Hgb Conc. 33.2 g/dL (32.0-36.0); Monocytes # (auto) 0.1 10 ^3/uL (0-1.3); Monocytes % (auto) 2.1 % (0.0-12.0); Neutrophils % (auto) 89.2 % (37.0-80.0); Platelet Count (auto) 96 10^3/uL (140-450); Red Blood Cells 4.56 10^6/uL (4.5-5.90); White Blood Cell 6.7 10^3/uL (4.4-10.8)
[2019-09-30 06:22] LABS: Potassium 3.5 mmol/L (3.5-5.1)
[2019-09-30 06:33] LABS: Albumin 3.2 g/dL (3.4-5.0); BUN/Creatinine Ratio 19.8; Bilirubin, Total 2.4 mg/dL (0.2-1.0); Magnesium 1.2 mg/dL (1.6-2.6); Total Protein 7.7 g/dL (6.4-8.2)
[2019-09-30 07:22] VITALS: BP 99/71
[2019-09-30] MEDS ORDERED: DOCUSATE SOD 100 MG CAP PO SCH (10:00)
[2019-09-30] MEDS ORDERED: B-COMPLEX W/ C & FOLIC ACID(NEPHROVITE TAB) PO SCH (10:00)
[2019-09-30] MEDS ORDERED: methylPREDNISolone SOD SUCC 125 MG/2 ML VL IV SCH (10:00)
[2019-09-30] MEDS ORDERED: ASPirin 81 mg TAB PO SCH (10:00)
[2019-09-30] MEDS ORDERED: CLOPIDOGREL BISULFATE 75 MG TAB PO SCH (10:00)
[2019-09-30] MEDS ORDERED: ENOXAPARIN SOD 100 MG/1 ML SYRINGE SC SCH (10:00)
[2019-09-30] MEDS ORDERED: ATORVASTATIN 20 MG TAB PO SCH (22:00)
[2019-10-01] MEDS ORDERED: ASPirin 81 mg TAB PO SCH (10:00)
== END 2019-09-30 07:34 | disposition short-term general hospital (02) | DRG 281 ==
LOC: EDBD 19:56 → ER 19:56 → TELE 19:57 → UNDODISIN 09-30 07:34
PROVIDERS: ADMIT Hospitalist; ATTEND Internal Medicine
DX: I21.4 Non-ST elevation (NSTEMI) myocardial infarction (principal); J45.902 Unspecified asthma with status asthmaticus; E78.5 Hyperlipidemia, unspecified; I11.0 Hypertensive heart disease with heart failure; F17.210 Nicotine dependence, cigarettes, uncomplicated; E87.6 Hypokalemia; I48.91 Unspecified atrial fibrillation; I50.9 Heart failure, unspecified; R00.0 Tachycardia, unspecified; Z83.3 Family history of diabetes mellitus
CPT/HCPCS: 36415; 71045; 71275; 80053; 80061; 83735; 83880; 84484; 85025; 85379; 85610; 85730; 93005; 94640; G0378; J2405; J3480

== ENCOUNTER 2019-12-29 18:47 | Inpatient (IN) | payer MEDICAID, OTHER ==
[~2019-12-29] VITALS: Ht 188 cm; Wt 118.4 kg
[2019-12-29] MEDS ORDERED: ACETAMINOPHEN 325 MG TAB PO ONE (19:15)
[2019-12-29 19:40] LABS: Basophils # (auto) 0.1 10 ^3/uL (0-0.2); Basophils % (auto) 0.6 % (0.0-2.0); Eosinophils # (auto) 0 10 ^3/uL (0-0.8); Lymphocytes # (auto) 0.5 10 ^3/uL (0.4-5.4); Monocytes # (auto) 0.8 10 ^3/uL (0-1.3)
[2019-12-29 19:42] LABS: Hematocrit 38.6 % (41.0-53.0); Hemoglobin 12.9 g/dL (13.5-17.5); Lymphocytes % (auto) 3.2 % (10.0-50.0); Mean Corpuscular Hemoglobin 36.4 pg (28.0-32.0); Mean Corpuscular Hgb Conc. 33.5 g/dL (32.0-36.0); Mean Corpuscular Volume 108.8 fL (80.0-100.0); Monocytes % (auto) 5.6 % (0.0-12.0); Neutrophils # (auto) 13.5 10 ^3/uL (1.6-8.6); Neutrophils % (auto) 90.6 % (37.0-80.0); Platelet Count (auto) 191 10^3/uL (140-450); Red Blood Cells 3.55 10^6/uL (4.5-5.90); Red Cell Distribution Width 18.2 % (11.8-14.3); White Blood Cell 14.9 10^3/uL (4.4-10.8)
[2019-12-29 19:57] LABS: INR 1.41 (0.9-1.15); Partial Thromboplastin Time 31.3 sec (23.0-31.2)
[2019-12-29 20:01] LABS: Chloride 103 mmol/L (98-107); Potassium 3.1 mmol/L (3.5-5.1); Sodium 134 mmol/L (136-145)
[2019-12-29 20:10] LABS: Alanine Aminotransferase 29 U/L (16-61); Albumin 2.3 g/dL (3.4-5.0); Alkaline Phosphatase 111 U/L (45-117); Anion Gap 11 (5-15); Aspartate Aminotransferase 104 U/L (15-37); BUN/Creatinine Ratio 7.5; Blood Urea Nitrogen 11 mg/dL (7-18); Calcium 7.6 mg/dL (8.5-10.1); Carbon Dioxide 20 mmol/L (21-32); GFR African American 67 mL/min; GFR Non-African American 55 mL/min; Glucose 135 mg/dL (74-106); Magnesium 1.1 mg/dL (1.6-2.6); Total Protein 6.9 g/dL (6.4-8.2)
[2019-12-29] MEDS ORDERED: DOXYCYCLINE 100MG/250ML 250 ML IV ONE (20:45)
[2019-12-29] MEDS ORDERED: ONDANSETRON HCL 4 MG/2 ML VIAL IV ONE (20:45)
[2019-12-29] MEDS ORDERED: POTASSIUM CHL 20 Meq TABLET PO ONE (20:45)
[2019-12-29] MEDS ORDERED: ZINC SULFATE 220mg CAP or TAB PO ONE (20:45)
[2019-12-29] MEDS ORDERED: ASCORBIC ACID 500 MG TAB PO ONE (20:45)
[2019-12-29] MEDS: MAGNESIUM SULFATE 1GM/100ML 100 ML IV SCH ×2 (21:15→22:15)
[2019-12-29] MEDS: SODIUM CHLORIDE 0.9% 1,000 ML IV SCH (21:32)
[2019-12-29 21:44] LABS: Lactic Acid w/Reflex 2.7 mmol/L (0.4-2.0)
[2019-12-29] MEDS ORDERED: ALBUTEROL SULF 2.5 MG/0.5ML(0.5%) NEB SOLN NEB PRN (21:45)
[2019-12-29] MEDS ORDERED: ONDANSETRON HCL 4 MG/2 ML VIAL IV PRN (21:45)
[2019-12-29] MEDS ORDERED: ACETAMINOPHEN 325 MG TAB PO PRN (21:45)
[2019-12-29] MEDS ORDERED: ACETAMINOPHEN 500 MG TAB PO PRN (21:45)
[2019-12-29] MEDS ORDERED: IPRATROPIUM BROM 0.5 MG/2.5ML INH SOL NEB PRN (21:45)
[2019-12-29] MEDS ORDERED: PATIENTS OWN MEDICATION (Carvedilol 25 MG) PO SCH (22:00)
[2019-12-29] MEDS ORDERED: ALBUTEROL SULF HFA 90MCG INH 200DOSE IN SCH (22:00)
[2019-12-29] MEDS: CARVEDILOL 12.5 MG TAB PO SCH (22:00)
[2019-12-29] MEDS: DOXYCYCLINE 100 MG TAB/CAP PO SCH (22:00)
[2019-12-29] MEDS: HYDROcodone-ACET 5/325MG TAB PO PRN (22:00)
[2019-12-29] MEDS: ATORVASTATIN 20 MG TAB PO SCH (22:00)
[2019-12-30 00:55] VITALS: BP 101/60
[2019-12-30 00:56] VITALS: BP 107/64
[2019-12-30] MEDS: MORPHINE SULF INJ 2 MG/ML SYRINGE 1ML IV PRN ×5 (02:04→21:02)
[2019-12-30] MEDS ORDERED: PAR20T PO (03:27)
[2019-12-30] MEDS ORDERED: AMIO200T4 PO (03:27)
[2019-12-30 06:00] VITALS: BP 97/50
[2019-12-30 06:04] LABS: Basophils # (auto) 0 10 ^3/uL (0-0.2); Basophils % (auto) 0.5 % (0.0-2.0); Eosinophils # (auto) 0 10 ^3/uL (0-0.8); Eosinophils % (auto) 0.1 % (0.0-7.0); Hematocrit 33.3 % (41.0-53.0); Hemoglobin 11.4 g/dL (13.5-17.5); Lymphocytes # (auto) 0.5 10 ^3/uL (0.4-5.4); Lymphocytes % (auto) 5.5 % (10.0-50.0); Mean Corpuscular Hemoglobin 37.3 pg (28.0-32.0); Mean Corpuscular Hgb Conc. 34.2 g/dL (32.0-36.0); Mean Corpuscular Volume 108.9 fL (80.0-100.0); Monocytes # (auto) 0.6 10 ^3/uL (0-1.3); Monocytes % (auto) 6.1 % (0.0-12.0); Neutrophils # (auto) 8.7 10 ^3/uL (1.6-8.6); Neutrophils % (auto) 87.8 % (37.0-80.0); Platelet Count (auto) 152 10^3/uL (140-450); Red Blood Cells 3.06 10^6/uL (4.5-5.90); Red Cell Distribution Width 17.5 % (11.8-14.3); White Blood Cell 9.9 10^3/uL (4.4-10.8)
[2019-12-30 06:31] LABS: Albumin 1.9 g/dL (3.4-5.0); Calcium 7.1 mg/dL (8.5-10.1); Magnesium 1.4 mg/dL (1.6-2.6); Potassium 3.1 mmol/L (3.5-5.1)
[2019-12-30 06:38] LABS: BUN/Creatinine Ratio 11.3; Bilirubin, Total 3.8 mg/dL (0.2-1.0); Total Protein 5.6 g/dL (6.4-8.2)
[2019-12-30] MEDS ORDERED: ASCORBIC ACID 1,000 MG TAB PO SCH (10:00)
[2019-12-30] MEDS ORDERED: FUROSEMIDE 40 MG TAB PO SCH (10:00)
[2019-12-30] MEDS ORDERED: ZINC SULFATE 220mg CAP or TAB PO SCH (10:00)
[2019-12-30] MEDS ORDERED: DexAMETHasone SOD PHOS 10MG/1ML VIAL INJ IV SCH (10:00)
[2019-12-30] MEDS: CARVEDILOL 12.5 MG TAB PO SCH (10:00)
[2019-12-30] MEDS ORDERED: PATIENTS OWN MEDICATION (Atorvastatin Calcium 1 TAB) PO SCH (10:00)
[2019-12-30] MEDS ORDERED: ENOXAPARIN SOD 40 MG/0.4 ML SYRINGE SC SCH (10:00)
[2019-12-30] MEDS: PANTOPRAZOLE 40 MG TAB PO SCH (10:37)
[2019-12-30] MEDS: DOXYCYCLINE 100 MG TAB/CAP PO SCH ×2 (10:38→21:02)
[2019-12-30] MEDS ORDERED: POTASSIUM EFFERVESENT TAB 25 MEQ PO ONE (11:30)
[2019-12-30] MEDS: DIGOXIN 0.25 MG TAB PO SCH (12:40)
[2019-12-30] MEDS: PIPERACILLIN-TAZOB 3.375GM 100 ML IV SCH ×3 (12:40→23:56)
[2019-12-30] MEDS: SODIUM CHLORIDE 0.9% 1,000 ML IV SCH (16:28)
[2019-12-30] MEDS ORDERED: WARFARIN SODIUM 2.5 MG TAB PO ONE (17:00)
[2019-12-30] MEDS ORDERED: RIVAROXABAN 20 MG TAB PO SCH (17:30)
[2019-12-30 20:00] VITALS: BP 104/61
[2019-12-30] MEDS: ATORVASTATIN 20 MG TAB PO SCH (21:02)
[2019-12-30] MEDS: CARVEDILOL 3.125 MG TAB PO SCH (21:03)
[2019-12-31] MEDS: MORPHINE SULF INJ 2 MG/ML SYRINGE 1ML IV PRN ×5 (03:14→22:08)
[2019-12-31] MEDS: LORazepam 0.5 MG TAB PO PRN ×2 (04:16→20:08)
[2019-12-31] MEDS: PIPERACILLIN-TAZOB 3.375GM 100 ML IV SCH ×4 (05:11→23:52)
[2019-12-31] MEDS: SODIUM CHLORIDE 0.9% 1,000 ML IV SCH (05:13)
[2019-12-31 05:15] VITALS: BP 102/68
[2019-12-31 06:39] LABS: Basophils # (auto) 0 10 ^3/uL (0-0.2); Basophils % (auto) 0.2 % (0.0-2.0); Eosinophils # (auto) 0 10 ^3/uL (0-0.8); Lymphocytes # (auto) 0.5 10 ^3/uL (0.4-5.4); Monocytes # (auto) 0.3 10 ^3/uL (0-1.3); Neutrophils # (auto) 5.2 10 ^3/uL (1.6-8.6)
[2019-12-31 06:43] LABS: Hematocrit 33.6 % (41.0-53.0); Hemoglobin 11.3 g/dL (13.5-17.5); Lymphocytes % (auto) 8.9 % (10.0-50.0); Mean Corpuscular Hemoglobin 36.9 pg (28.0-32.0); Mean Corpuscular Hgb Conc. 33.6 g/dL (32.0-36.0); Mean Corpuscular Volume 109.7 fL (80.0-100.0); Monocytes % (auto) 5.3 % (0.0-12.0); Neutrophils % (auto) 85.6 % (37.0-80.0); Nucleated Red Blood Cells % 0.1 %; Platelet Count (auto) 166 10^3/uL (140-450); Red Blood Cells 3.06 10^6/uL (4.5-5.90); Red Cell Distribution Width 18.2 % (11.8-14.3); White Blood Cell 6.1 10^3/uL (4.4-10.8)
[2019-12-31 06:54] LABS: INR 1.51 (0.9-1.15)
[2019-12-31 06:57] LABS: Albumin 1.9 g/dL (3.4-5.0); Calcium 7.3 mg/dL (8.5-10.1); Potassium 3.1 mmol/L (3.5-5.1)
[2019-12-31 07:01] LABS: BUN/Creatinine Ratio 22.9; Bilirubin, Total 2.6 mg/dL (0.2-1.0); Total Protein 6.2 g/dL (6.4-8.2)
[2019-12-31] MEDS ORDERED: POTASSIUM CHL 20 Meq TABLET PO ONE (08:15)
[2019-12-31 08:29] VITALS: BP 112/70
[2019-12-31] MEDS: CARVEDILOL 3.125 MG TAB PO SCH ×2 (08:45→22:00)
[2019-12-31] MEDS: DIGOXIN 0.25 MG TAB PO SCH (08:45)
[2019-12-31] MEDS: PANTOPRAZOLE 40 MG TAB PO SCH (08:46)
[2019-12-31] MEDS: DOXYCYCLINE 100 MG TAB/CAP PO SCH ×2 (08:46→22:06)
[2019-12-31] MEDS ORDERED: MAGNESIUM OXIDE 400 MG TAB PO SCH (10:00)
[2019-12-31] MEDS: MAGNESIUM SULFATE 1GM/100ML 100 ML IV SCH ×2 (14:46→14:48)
[2019-12-31 16:59] VITALS: BP 92/58
[2019-12-31] MEDS ORDERED: WARFARIN SODIUM 5 MG TAB PO ONE (17:00)
[2019-12-31 21:46] VITALS: BP 108/75
[2019-12-31] MEDS: MAGNESIUM OXIDE 400 MG TAB PO SCH (22:06)
[2019-12-31] MEDS: ATORVASTATIN 20 MG TAB PO SCH (22:07)
[2020-01-01] MEDS: MORPHINE SULF INJ 2 MG/ML SYRINGE 1ML IV PRN ×3 (03:18→14:39)
[2020-01-01 05:00] VITALS: BP 107/69
[2020-01-01] MEDS: PIPERACILLIN-TAZOB 3.375GM 100 ML IV SCH ×3 (05:37→16:42)
[2020-01-01 05:59] LABS: Basophils # (auto) 0 10 ^3/uL (0-0.2); Basophils % (auto) 0.2 % (0.0-2.0); Eosinophils # (auto) 0 10 ^3/uL (0-0.8)
[2020-01-01 06:02] LABS: Eosinophils % (auto) 0.3 % (0.0-7.0); Hematocrit 35.4 % (41.0-53.0); Hemoglobin 11.8 g/dL (13.5-17.5); Lymphocytes # (auto) 1.2 10 ^3/uL (0.4-5.4); Lymphocytes % (auto) 14.2 % (10.0-50.0); Mean Corpuscular Hemoglobin 36.6 pg (28.0-32.0); Mean Corpuscular Hgb Conc. 33.2 g/dL (32.0-36.0); Mean Corpuscular Volume 110.2 fL (80.0-100.0); Monocytes # (auto) 0.5 10 ^3/uL (0-1.3); Monocytes % (auto) 6.1 % (0.0-12.0); Neutrophils # (auto) 6.7 10 ^3/uL (1.6-8.6); Neutrophils % (auto) 79.2 % (37.0-80.0); Nucleated Red Blood Cells % 0.1 %; Platelet Count (auto) 186 10^3/uL (140-450); Red Blood Cells 3.21 10^6/uL (4.5-5.90); Red Cell Distribution Width 17.8 % (11.8-14.3); White Blood Cell 8.4 10^3/uL (4.4-10.8)
[2020-01-01 06:14] LABS: INR 1.46 (0.9-1.15)
[2020-01-01] MEDS: CARVEDILOL 3.125 MG TAB PO SCH (08:10)
[2020-01-01] MEDS: MAGNESIUM OXIDE 400 MG TAB PO SCH ×2 (08:11→21:59)
[2020-01-01] MEDS: DIGOXIN 0.25 MG TAB PO SCH (08:11)
[2020-01-01] MEDS: DOXYCYCLINE 100 MG TAB/CAP PO SCH ×2 (08:12→21:59)
[2020-01-01] MEDS: PANTOPRAZOLE 40 MG TAB PO SCH (08:12)
[2020-01-01 09:00] VITALS: BP 112/66
[2020-01-01 12:26] VITALS: BP 97/60
[2020-01-01] MEDS ORDERED: WARFARIN SODIUM 2.5 MG TAB PO ONE (17:00)
[2020-01-01 17:56] VITALS: BP 97/60
[2020-01-01] MEDS ORDERED: HYDROmorphone HCL 2 MG/ML VL IV ONE (18:15)
[2020-01-01] MEDS: RIVAROXABAN 20 MG TAB PO SCH (20:11)
[2020-01-01 21:47] VITALS: BP 111/67
[2020-01-01] MEDS: ATORVASTATIN 20 MG TAB PO SCH (21:59)
[2020-01-02] MEDS: MORPHINE SULF INJ 2 MG/ML SYRINGE 1ML IV PRN ×5 (00:21→23:46)
[2020-01-02 05:00] VITALS: BP 110/60
[2020-01-02 05:35] LABS: Basophils # (auto) 0 10 ^3/uL (0-0.2); Eosinophils # (auto) 0.1 10 ^3/uL (0-0.8); Hemoglobin 12.2 g/dL (13.5-17.5); Lymphocytes % (auto) 21.9 % (10.0-50.0); Monocytes # (auto) 0.7 10 ^3/uL (0-1.3); Monocytes % (auto) 8.8 % (0.0-12.0); Red Cell Distribution Width 18.2 % (11.8-14.3)
[2020-01-02 05:39] LABS: Basophils % (auto) 0.4 % (0.0-2.0); Eosinophils % (auto) 1.5 % (0.0-7.0); Hematocrit 38.1 % (41.0-53.0); Lymphocytes # (auto) 1.6 10 ^3/uL (0.4-5.4); Mean Corpuscular Hemoglobin 35.6 pg (28.0-32.0); Mean Corpuscular Hgb Conc. 32.2 g/dL (32.0-36.0); Mean Corpuscular Volume 110.7 fL (80.0-100.0); Neutrophils % (auto) 67.4 % (37.0-80.0); Nucleated Red Blood Cells % 0.1 %; Platelet Count (auto) 192 10^3/uL (140-450); Red Blood Cells 3.44 10^6/uL (4.5-5.90); White Blood Cell 7.5 10^3/uL (4.4-10.8)
[2020-01-02 05:46] LABS: Urine Bacteria FEW /hpf (None Seen); Urine Blood Negative /uL (Negative); Urine Specific Gravity 1.012 (1.001-1.035); Urine WBC 3 /hpf (0 - 3)
[2020-01-02 05:54] LABS: INR 2.46 (0.9-1.15)
[2020-01-02 06:00] LABS: Albumin 2.1 g/dL (3.4-5.0); Calcium 7.7 mg/dL (8.5-10.1); Potassium 3.7 mmol/L (3.5-5.1)
[2020-01-02 06:04] LABS: BUN/Creatinine Ratio 27.1; Bilirubin, Total 2.2 mg/dL (0.2-1.0); Total Protein 6.1 g/dL (6.4-8.2)
[2020-01-02 06:08] LABS: Protein, Urine 19.7 mg/dL (0.0-11.9)
[2020-01-02 08:34] VITALS: BP 114/76
[2020-01-02] MEDS: DOXYCYCLINE 100 MG TAB/CAP PO SCH ×2 (10:17→22:33)
[2020-01-02] MEDS: MAGNESIUM OXIDE 400 MG TAB PO SCH ×2 (10:17→22:33)
[2020-01-02] MEDS: PANTOPRAZOLE 40 MG TAB PO SCH (10:18)
[2020-01-02] MEDS: DIGOXIN 0.25 MG TAB PO SCH (10:18)
[2020-01-02] MEDS ORDERED: HYDROmorphone HCL 2 MG/ML VL IV ONE (11:30)
[2020-01-02 12:56] VITALS: BP 101/74
[2020-01-02] MEDS: MAGNESIUM SULFATE 1GM/100ML 100 ML IV SCH ×2 (16:26→17:57)
[2020-01-02 16:30] VITALS: BP 102/67
[2020-01-02] MEDS: RIVAROXABAN 20 MG TAB PO SCH (17:58)
[2020-01-02 21:24] VITALS: BP 107/64
[2020-01-02] MEDS: ATORVASTATIN 20 MG TAB PO SCH (22:33)
[2020-01-03] MEDS: MORPHINE SULF INJ 2 MG/ML SYRINGE 1ML IV PRN ×3 (04:03→12:40)
[2020-01-03 05:50] VITALS: BP 107/76
[2020-01-03] MEDS: MAGNESIUM SULFATE 1GM/100ML 100 ML IV SCH ×3 (07:00→09:30)
[2020-01-03 08:00] VITALS: BP 114/69
[2020-01-03 09:00] VITALS: BP 114/69
[2020-01-03] MEDS: MAGNESIUM OXIDE 400 MG TAB PO SCH (09:30)
[2020-01-03] MEDS: DOXYCYCLINE 100 MG TAB/CAP PO SCH (09:30)
[2020-01-03] MEDS: PANTOPRAZOLE 40 MG TAB PO SCH (09:30)
[2020-01-03] MEDS: DIGOXIN 0.25 MG TAB PO SCH (09:31)
[2020-01-03] MEDS: HYDROcodone-ACET 5/325MG TAB PO PRN (09:47)
[2020-01-03 12:47] VITALS: BP 121/79
[2020-01-03 14:07] VITALS: BP 121/79
== END 2020-01-03 16:45 | disposition home or self-care (01) | DRG 720 ==
LOC: ER 18:47 → EDBD 18:47 → TELE 18:48 → EAST 23:25 → TELE-EAST 23:39 → TELE-CENTR 12-31 04:14
PROVIDERS: ADMIT Hospitalist; ATTEND Internal Medicine Nephrology
DX: A41.9 Sepsis, unspecified organism (principal); J96.21 Acute and chronic respiratory failure with hypoxia; N17.0 Acute kidney failure with tubular necrosis; J18.1 Lobar pneumonia, unspecified organism; E83.42 Hypomagnesemia; I11.0 Hypertensive heart disease with heart failure; I42.9 Cardiomyopathy, unspecified; I48.0 Paroxysmal atrial fibrillation; I50.22 Chronic systolic (congestive) heart failure; I27.82 Chronic pulmonary embolism; I82.501 Chronic embolism and thrombosis of unspecified deep veins of right lower extremity; I95.9 Hypotension, unspecified; Z20.828 Contact with and (suspected) exposure to other viral communicable diseases; J45.909 Unspecified asthma, uncomplicated; G89.29 Other chronic pain; G47.30 Sleep apnea, unspecified; F17.210 Nicotine dependence, cigarettes, uncomplicated; M25.511 Pain in right shoulder; E87.6 Hypokalemia; E66.9 Obesity, unspecified; J98.11 Atelectasis; K70.9 Alcoholic liver disease, unspecified; D64.9 Anemia, unspecified; E78.5 Hyperlipidemia, unspecified; Z82.49 Family history of ischemic heart disease and other diseases of the circulatory system; Z83.3 Family history of diabetes mellitus; Z91.14 Patient's other noncompliance with medication regimen; Z68.33 Body mass index [BMI] 33.0-33.9, adult; Z72.89 Other problems related to lifestyle
CPT/HCPCS: 36415; 36600; 71045; 71250; 73200; 73610; 78582; 80053; 80061; 80162; 81001; 82570; 82728; 82805; 83036; 83605; 83615; 83735; 83880; 84156; 84484; 85025; 85379; 85610; 85730; 86141; 87040; 87077; 87081; 87086; 87186; 87426; 93005; 93970; 94760; G0378; J1100; J2405; J2543; J3490

== ENCOUNTER 2020-02-10 22:05 | Inpatient (IN) | payer MEDICAID ==
[~2020-02-10] VITALS: Ht 190.5 cm; Wt 123.5 kg
[~2020-02-10 22:05] MED LIST changes: -ATOR40TA52 PO; -CARV25TA55 PO; -DIGO0.2520 PO; -FLUT500M2 INH; -FURO40TA4 PO; -OMEP20TA PO; +PAR20T PO
[2020-02-10] MEDS ORDERED: AMIODARONE HCL 150 MG in D5W 5% 100 ML IV ONE (22:45)
[2020-02-10] MEDS ORDERED: ONDANSETRON HCL 4 MG/2 ML VIAL IV ONE (22:45)
[2020-02-10] MEDS ORDERED: MORPHINE SULFATE 10 MG/ML INJ 1ML SDV IV ONE (22:45)
[2020-02-10] MEDS ORDERED: MORPHINE SULFATE 4 MG/ML SYR/VIAL ONE (23:01)
[2020-02-10] MEDS ORDERED: AMIODARONE HCL (50 MG/ ML) 3 ML VIAL IV ONE (23:06)
[2020-02-10 23:18] LABS: Basophils # (auto) 0.1 10 ^3/uL (0-0.2); Eosinophils # (auto) 0 10 ^3/uL (0-0.8); Hemoglobin 14.2 g/dL (13.5-17.5); Mean Corpuscular Volume 103.9 fL (80.0-100.0); Monocytes # (auto) 0.8 10 ^3/uL (0-1.3); Neutrophils % (auto) 74.3 % (37.0-80.0); Nucleated Red Blood Cells % 0.1 %
[2020-02-10 23:20] LABS: Basophils % (auto) 0.8 % (0.0-2.0); Eosinophils % (auto) 0.3 % (0.0-7.0); Hematocrit 42.3 % (41.0-53.0); Lymphocytes % (auto) 13.6 % (10.0-50.0); Mean Corpuscular Hemoglobin 34.9 pg (28.0-32.0); Mean Corpuscular Hgb Conc. 33.6 g/dL (32.0-36.0); Neutrophils # (auto) 5.7 10 ^3/uL (1.6-8.6); Platelet Count (auto) 109 10^3/uL (140-450); Red Blood Cells 4.07 10^6/uL (4.5-5.90); Red Cell Distribution Width 18.2 % (11.8-14.3); White Blood Cell 7.6 10^3/uL (4.4-10.8)
[2020-02-10 23:40] LABS: Albumin 2.3 g/dL (3.4-5.0); Anion Gap 17 (5-15); Blood Urea Nitrogen 15 mg/dL (7-18); Calcium 7.8 mg/dL (8.5-10.1); Carbon Dioxide 17 mmol/L (21-32); Chloride 99 mmol/L (98-107); Glucose 98 mg/dL (74-106); Magnesium 1.4 mg/dL (1.6-2.6); Sodium 133 mmol/L (136-145)
[2020-02-10 23:42] LABS: Alanine Aminotransferase 48 U/L (16-61); Aspartate Aminotransferase 263 U/L (15-37); BUN/Creatinine Ratio 11.8; GFR African American 79 mL/min; GFR Non-African American 65 mL/min; Potassium 2.9 mmol/L (3.5-5.1)
[2020-02-10 23:44] LABS: INR 1.67 (0.9-1.15); Partial Thromboplastin Time 34.8 sec (23.0-31.2)
[2020-02-10 23:49] LABS: Alkaline Phosphatase 181 U/L (45-117); Bilirubin, Total 14.1 mg/dL (0.2-1.0); Total Protein 7.4 g/dL (6.4-8.2)
[2020-02-11] MEDS ORDERED: POTASSIUM EFFERVESENT TAB 25 MEQ PO ONE
[2020-02-11] MEDS ORDERED: POTASSIUM CHL 20MEQ/100ML 100 ML IV ONE
[2020-02-11] MEDS ORDERED: IOHEXOL 350 MG/ML 100ML IJ ONE (01:25)
[2020-02-11] MEDS ORDERED: AMIODARONE 450mg/250ml AE 250 ML IV SCH ×2 (01:30→07:30)
[2020-02-11] MEDS ORDERED: ALBUMIN 5% 250 ML IV ONE (02:30)
[2020-02-11] MEDS ORDERED: ACETAMINOPHEN 325 MG TAB PO PRN (02:45)
[2020-02-11] MEDS ORDERED: TEMAZEPAM 15 MG CAP PO PRN (02:45)
[2020-02-11] MEDS ORDERED: NITROGLYCERIN 0.4 MG SL TAB SL PRN (02:45)
[2020-02-11] MEDS ORDERED: MORPHINE SULF INJ 2 MG/ML SYRINGE 1ML IV PRN ×2 (02:45→08:45)
[2020-02-11] MEDS: MAGNESIUM SULFATE 1GM/100ML 100 ML IV SCH ×3 (02:58→04:10)
[2020-02-11] MEDS: ONDANSETRON HCL 4 MG/2 ML VIAL IV PRN ×2 (03:08→07:47)
[2020-02-11 03:27] LABS: Lactic Acid w/Reflex 6.1 mmol/L (0.4-2.0)
[2020-02-11 03:45] VITALS: BP 128/78
[2020-02-11] MEDS ORDERED: DOXY100C2 PO (04:39)
[2020-02-11] MEDS ORDERED: MAGN400C2 PO (04:39)
[2020-02-11] MEDS ORDERED: AMIO200T33 PO (04:39)
[2020-02-11] MEDS ORDERED: DIGO0.25 PO (04:39)
[2020-02-11 05:00] VITALS: BP 128/78
[2020-02-11] MEDS ORDERED: INFLUENZA QUAD 2020-2021 0.5 ML SYRG IM ONE (05:15)
[2020-02-11 08:40] VITALS: BP 115/66
[2020-02-11] MEDS ORDERED: NITROGLYCERIN 2% OINT 1GM PKG TD PRN (08:45)
[2020-02-11] MEDS ORDERED: PROMETHAZINE HCL 25 MG/ML 1ML IV PRN (08:45)
[2020-02-11] MEDS: NITROGLYCERIN 2% OINT 1GM PKG TD SCH ×6 (09:03→23:03)
[2020-02-11] MEDS: PARoxetine 20 MG TAB PO SCH (09:41)
[2020-02-11] MEDS: FAMOTIDINE 20 MG TAB PO SCH ×2 (09:41→21:19)
[2020-02-11] MEDS: METOPROLOL TARTRATE 25 MG TAB PO SCH ×2 (09:42→21:19)
[2020-02-11] MEDS: DIGOXIN 0.25 MG TAB PO SCH (09:42)
[2020-02-11] MEDS ORDERED: FUROSEMIDE 40 MG TAB PO SCH (10:00)
[2020-02-11] MEDS: LISINOPRIL 10 MG TAB PO SCH (10:00)
[2020-02-11] MEDS ORDERED: DIGOXIN (250MCG/ML) 2 ML AMPULE IV ONE (11:30)
[2020-02-11] MEDS ORDERED: POTASSIUM CHL 20 Meq TABLET PO ONE (11:30)
[2020-02-11] MEDS ORDERED: PATIENTS OWN MEDICATION (xarelto 20 MG) PO SCH (11:30)
[2020-02-11 11:47] LABS: Basophils # (auto) 0.1 10 ^3/uL (0-0.2); Eosinophils # (auto) 0 10 ^3/uL (0-0.8); Neutrophils # (auto) 6.1 10 ^3/uL (1.6-8.6); White Blood Cell 7.6 10^3/uL (4.4-10.8)
[2020-02-11 11:49] LABS: Basophils % (auto) 1.3 % (0.0-2.0); Eosinophils % (auto) 0.1 % (0.0-7.0); Hematocrit 41.2 % (41.0-53.0); Hemoglobin 13.7 g/dL (13.5-17.5); Lymphocytes # (auto) 0.6 10 ^3/uL (0.4-5.4); Lymphocytes % (auto) 8.2 % (10.0-50.0); Mean Corpuscular Hemoglobin 34.9 pg (28.0-32.0); Mean Corpuscular Hgb Conc. 33.3 g/dL (32.0-36.0); Mean Corpuscular Volume 104.8 fL (80.0-100.0); Monocytes # (auto) 0.8 10 ^3/uL (0-1.3); Monocytes % (auto) 10.6 % (0.0-12.0); Neutrophils % (auto) 79.8 % (37.0-80.0); Platelet Count (auto) 105 10^3/uL (140-450); Red Blood Cells 3.93 10^6/uL (4.5-5.90); Red Cell Distribution Width 18.4 % (11.8-14.3)
[2020-02-11] MEDS ORDERED: predniSONE 20 MG TAB PO ONE (12:30)
[2020-02-11 12:31] VITALS: BP 102/66
[2020-02-11 13:14] LABS: Albumin 2.5 g/dL (3.4-5.0); Calcium 7.9 mg/dL (8.5-10.1)
[2020-02-11 13:17] LABS: BUN/Creatinine Ratio 12.4; Bilirubin, Total 15.3 mg/dL (0.2-1.0); Total Protein 7.2 g/dL (6.4-8.2)
[2020-02-11 13:20] LABS: Potassium 2.7 mmol/L (3.5-5.1)
[2020-02-11] MEDS: POTASSIUM CHL 20MEQ/100ML 100 ML IV SCH ×3 (14:23→20:51)
[2020-02-11] MEDS: IPRATROPIUM BROM 0.5 MG/2.5ML INH SOL NEB SCH ×2 (14:27→18:36)
[2020-02-11] MEDS: ALBUTEROL SULF 2.5 MG/0.5ML(0.5%) NEB SOLN NEB SCH ×3 (14:27→23:49)
[2020-02-11] MEDS ORDERED: AMIODARONE HCL 200 MG TAB PO ONE (14:45)
[2020-02-11] MEDS: HYDROmorphone HCL 2 MG/ML VL IV PRN ×2 (15:04→21:20)
[2020-02-11] MEDS ORDERED: cefTRIAXone 1GM/50ML D5W 50 ML IV ONE (15:15)
[2020-02-11] MEDS ORDERED: PANTOPRAZOLE 40 MG/10 ML VIAL INJ IV ONE (15:15)
[2020-02-11] MEDS ORDERED: LIDOCAINE 1% (LOCAL ANESTH.) PF 5ml SDV ID ONE (15:30)
[2020-02-11 17:00] VITALS: BP 142/63
[2020-02-11] MEDS ORDERED: WARFARIN SODIUM 5 MG TAB PO ONE (17:00)
[2020-02-11 17:24] LABS: Amylase 21 U/L (25-115); Blood Alcohol < 3.0 mg/dL (0-5); Lipase 91 U/L (73-393)
[2020-02-11 17:35] LABS: Urine Bacteria NONE SEEN /hpf (None Seen); Urine Blood 3+ /uL (Negative); Urine Hyaline Cast FEW /lpf (0 - 2); Urine Mucus FEW (None Seen); Urine Specific Gravity 1.034 (1.001-1.035); Urine WBC 40 /hpf (0 - 3)
[2020-02-11 17:42] LABS: Amphetamine Screen, Urine NEGATIVE (NEGATIVE); Barbiturate Scree,Urine NEGATIVE (NEGATIVE); Benzodiazephine Screen, Urine NEGATIVE (NEGATIVE); Cannabinoid Screen, Urine NEGATIVE (NEGATIVE); Cocaine Screen, Urine NEGATIVE (NEGATIVE); Phencyclidine Screen, Urine NEGATIVE (NEGATIVE)
[2020-02-11 17:49] LABS: Opiate Scree,Urine POSITIVE (NEGATIVE)
[2020-02-11] MEDS ORDERED: RIVAROXABAN 20 MG TAB PO SCH (18:00)
[2020-02-11] MEDS: BUDESONIDE (INHALATION) 0.5 MG/2 ML NEB NEB SCH (18:36)
[2020-02-11 19:18] LABS: INR 1.75 (0.9-1.15); Partial Thromboplastin Time 38.9 sec (23.0-31.2)
[2020-02-11 20:00] VITALS: BP 119/70
[2020-02-11] MEDS: SODIUM CHLOR 0.9% PF (SALINE LOCK) 10ML VIAL/SYR IV SCH (21:18)
[2020-02-11] MEDS: AMIODARONE HCL 200 MG TAB PO SCH (21:18)
[2020-02-11] MEDS: URSODIOL 300 MG CAP PO SCH (22:00)
[2020-02-12] VITALS (7 sets, daily range): BP systolic 113–133; BP diastolic 63–79
[2020-02-12] MEDS: NITROGLYCERIN 2% OINT 1GM PKG TD SCH ×5 (00:45→18:09)
[2020-02-12] MEDS: HYDROmorphone HCL 2 MG/ML VL IV PRN ×2 (05:06→18:11)
[2020-02-12 05:12] LABS: Basophils # (auto) 0 10 ^3/uL (0-0.2); Basophils % (auto) 0.2 % (0.0-2.0); Eosinophils # (auto) 0 10 ^3/uL (0-0.8); Hematocrit 39.9 % (41.0-53.0); Hemoglobin 13.4 g/dL (13.5-17.5); Lymphocytes # (auto) 0.5 10 ^3/uL (0.4-5.4); Lymphocytes % (auto) 6.6 % (10.0-50.0); Mean Corpuscular Hemoglobin 35.1 pg (28.0-32.0); Mean Corpuscular Hgb Conc. 33.6 g/dL (32.0-36.0); Mean Corpuscular Volume 104.4 fL (80.0-100.0); Monocytes # (auto) 0.6 10 ^3/uL (0-1.3); Monocytes % (auto) 7.9 % (0.0-12.0); Neutrophils % (auto) 85.3 % (37.0-80.0); Platelet Count (auto) 98 10^3/uL (140-450); Red Blood Cells 3.82 10^6/uL (4.5-5.90); Red Cell Distribution Width 17.9 % (11.8-14.3)
[2020-02-12 05:20] LABS: INR 1.86 (0.9-1.15); Partial Thromboplastin Time 38.7 sec (23.0-31.2)
[2020-02-12 05:31] LABS: Potassium 3.7 mmol/L (3.5-5.1)
[2020-02-12 05:42] LABS: Albumin 2.1 g/dL (3.4-5.0); BUN/Creatinine Ratio 15.3; Bilirubin, Total 16.1 mg/dL (0.2-1.0); Calcium 7.9 mg/dL (8.5-10.1); Total Protein 6.6 g/dL (6.4-8.2)
[2020-02-12] MEDS: ALBUTEROL SULF 2.5 MG/0.5ML(0.5%) NEB SOLN NEB SCH ×3 (06:50→18:27)
[2020-02-12] MEDS: IPRATROPIUM BROM 0.5 MG/2.5ML INH SOL NEB SCH ×3 (06:51→18:27)
[2020-02-12] MEDS: cefTRIAXone 1GM/50ML D5W 50 ML IV SCH (08:29)
[2020-02-12] MEDS: SODIUM CHLOR 0.9% PF (SALINE LOCK) 10ML VIAL/SYR IV SCH ×2 (09:44→22:00)
[2020-02-12] MEDS: PANTOPRAZOLE 40 MG/10 ML VIAL INJ IV SCH ×2 (09:44→22:51)
[2020-02-12] MEDS: predniSONE 20 MG TAB PO SCH (09:45)
[2020-02-12] MEDS: PARoxetine 20 MG TAB PO SCH (09:46)
[2020-02-12] MEDS: METOPROLOL TARTRATE 25 MG TAB PO SCH ×2 (09:46→22:52)
[2020-02-12] MEDS: FAMOTIDINE 20 MG TAB PO SCH ×2 (09:47→22:52)
[2020-02-12] MEDS: AMIODARONE HCL 200 MG TAB PO SCH (09:47)
[2020-02-12] MEDS: DIGOXIN 0.25 MG TAB PO SCH (09:47)
[2020-02-12] MEDS: LISINOPRIL 10 MG TAB PO SCH (09:48)
[2020-02-12] MEDS: URSODIOL 300 MG CAP PO SCH ×2 (10:17→22:52)
[2020-02-12] MEDS: BUDESONIDE (INHALATION) 0.5 MG/2 ML NEB NEB SCH ×2 (13:58→18:27)
[2020-02-12] MEDS ORDERED: WARFARIN SODIUM 1 MG TAB PO ONE (17:00)
[2020-02-13] VITALS: BP 102/72
[2020-02-13] MEDS: ALBUTEROL SULF 2.5 MG/0.5ML(0.5%) NEB SOLN NEB SCH ×4 (00:01→18:23)
[2020-02-13] MEDS: LACTULOSE 20Gm/30ML SOLN PO SCH ×5 (00:06→23:59)
[2020-02-13] MEDS: HYDROmorphone HCL 2 MG/ML VL IV PRN ×2 (01:41→18:55)
[2020-02-13 03:09] LABS: Basophils # (auto) 0.1 10 ^3/uL (0-0.2); Basophils % (auto) 0.8 % (0.0-2.0); Eosinophils # (auto) 0 10 ^3/uL (0-0.8); Hematocrit 39.4 % (41.0-53.0); Hemoglobin 13.4 g/dL (13.5-17.5); Lymphocytes # (auto) 0.5 10 ^3/uL (0.4-5.4); Lymphocytes % (auto) 6.5 % (10.0-50.0); Mean Corpuscular Hemoglobin 35.2 pg (28.0-32.0); Mean Corpuscular Volume 103.8 fL (80.0-100.0); Monocytes # (auto) 0.5 10 ^3/uL (0-1.3); Monocytes % (auto) 7.5 % (0.0-12.0); Neutrophils # (auto) 6.1 10 ^3/uL (1.6-8.6); Neutrophils % (auto) 85.2 % (37.0-80.0); Nucleated Red Blood Cells % 0.1 %; Platelet Count (auto) 97 10^3/uL (140-450); Red Cell Distribution Width 18.2 % (11.8-14.3); White Blood Cell 7.2 10^3/uL (4.4-10.8)
[2020-02-13 03:20] LABS: INR 3.01 (0.9-1.15)
[2020-02-13 03:25] LABS: Calcium 8.1 mg/dL (8.5-10.1); Potassium 3.6 mmol/L (3.5-5.1)
[2020-02-13 03:29] LABS: BUN/Creatinine Ratio 19.7; Bilirubin, Total 16.6 mg/dL (0.2-1.0); Total Protein 6.2 g/dL (6.4-8.2)
[2020-02-13 04:30] VITALS: BP 98/71
[2020-02-13] MEDS: IPRATROPIUM BROM 0.5 MG/2.5ML INH SOL NEB SCH ×3 (07:24→18:24)
[2020-02-13] MEDS: BUDESONIDE (INHALATION) 0.5 MG/2 ML NEB NEB SCH ×2 (07:24→18:24)
[2020-02-13] MEDS ORDERED: OMNIPAQUE ORAL SOLN 500ml 12mg/ml PO ONE ×2 (07:40→10:31)
[2020-02-13 08:00] VITALS: BP 108/78
[2020-02-13 12:15] VITALS: BP 122/80
[2020-02-13] MEDS: cefTRIAXone 1GM/50ML D5W 50 ML IV SCH (13:48)
[2020-02-13] MEDS: PANTOPRAZOLE 40 MG/10 ML VIAL INJ IV SCH ×2 (13:48→21:53)
[2020-02-13] MEDS: SODIUM CHLOR 0.9% PF (SALINE LOCK) 10ML VIAL/SYR IV SCH ×2 (13:48→21:53)
[2020-02-13] MEDS: URSODIOL 300 MG CAP PO SCH ×2 (13:50→21:53)
[2020-02-13] MEDS: predniSONE 20 MG TAB PO SCH (13:50)
[2020-02-13] MEDS: DIGOXIN 0.25 MG TAB PO SCH (13:51)
[2020-02-13] MEDS: PARoxetine 20 MG TAB PO SCH (13:52)
[2020-02-13] MEDS: FAMOTIDINE 20 MG TAB PO SCH ×2 (13:52→21:53)
[2020-02-13] MEDS: METOPROLOL TARTRATE 25 MG TAB PO SCH ×2 (13:52→21:53)
[2020-02-13] MEDS: LISINOPRIL 10 MG TAB PO SCH (13:53)
[2020-02-13 15:30] VITALS: BP 130/68
[2020-02-13] MEDS ORDERED: IOHEXOL 300 MG/ML 100ML BOTTLE IJ ONE (15:52)
[2020-02-13 20:00] VITALS: BP 128/75
[2020-02-14] VITALS (7 sets, daily range): BP systolic 100–132; BP diastolic 61–95
[2020-02-14] MEDS: LACTULOSE 20Gm/30ML SOLN PO SCH ×4 (06:06→23:56)
[2020-02-14] MEDS: BUDESONIDE (INHALATION) 0.5 MG/2 ML NEB NEB SCH ×2 (06:40→18:43)
[2020-02-14] MEDS: IPRATROPIUM BROM 0.5 MG/2.5ML INH SOL NEB SCH ×3 (06:40→18:44)
[2020-02-14] MEDS: ALBUTEROL SULF 2.5 MG/0.5ML(0.5%) NEB SOLN NEB SCH ×3 (06:40→18:43)
[2020-02-14 07:03] LABS: Basophils # (auto) 0 10 ^3/uL (0-0.2); Eosinophils # (auto) 0 10 ^3/uL (0-0.8); Lymphocytes # (auto) 0.5 10 ^3/uL (0.4-5.4); Lymphocytes % (auto) 8.5 % (10.0-50.0); Monocytes # (auto) 0.5 10 ^3/uL (0-1.3); Neutrophils # (auto) 4.9 10 ^3/uL (1.6-8.6); White Blood Cell 5.9 10^3/uL (4.4-10.8)
[2020-02-14 07:05] LABS: Basophils % (auto) 0.3 % (0.0-2.0); Hematocrit 41.4 % (41.0-53.0); Hemoglobin 14.3 g/dL (13.5-17.5); Mean Corpuscular Hemoglobin 35.9 pg (28.0-32.0); Mean Corpuscular Hgb Conc. 34.7 g/dL (32.0-36.0); Mean Corpuscular Volume 103.5 fL (80.0-100.0); Monocytes % (auto) 8.4 % (0.0-12.0); Neutrophils % (auto) 82.8 % (37.0-80.0); Platelet Count (auto) 88 10^3/uL (140-450); Red Cell Distribution Width 18.2 % (11.8-14.3)
[2020-02-14 07:11] LABS: Partial Thromboplastin Time 46.6 sec (23.0-31.2)
[2020-02-14 07:22] LABS: BUN/Creatinine Ratio 21.2; Calcium 8.2 mg/dL (8.5-10.1); Potassium 3.1 mmol/L (3.5-5.1)
[2020-02-14 07:38] LABS: INR 6.3 (0.9-1.15)
[2020-02-14] MEDS: cefTRIAXone 1GM/50ML D5W 50 ML IV SCH (08:44)
[2020-02-14] MEDS ORDERED: POTASSIUM EFFERVESENT TAB 25 MEQ GT ONE (08:45)
[2020-02-14] MEDS ORDERED: phytonadione 5 MG in SODIUM CHL 0.9% 50 ML IV ONE (08:45)
[2020-02-14] MEDS: SODIUM CHLOR 0.9% PF (SALINE LOCK) 10ML VIAL/SYR IV SCH ×2 (09:06→22:34)
[2020-02-14] MEDS: PARoxetine 20 MG TAB PO SCH (09:06)
[2020-02-14] MEDS: PANTOPRAZOLE 40 MG/10 ML VIAL INJ IV SCH ×2 (09:06→22:34)
[2020-02-14] MEDS: predniSONE 20 MG TAB PO SCH (09:07)
[2020-02-14] MEDS: FAMOTIDINE 20 MG TAB PO SCH ×2 (09:07→22:37)
[2020-02-14] MEDS: DIGOXIN 0.25 MG TAB PO SCH (09:07)
[2020-02-14] MEDS: LISINOPRIL 10 MG TAB PO SCH (09:08)
[2020-02-14] MEDS: URSODIOL 300 MG CAP PO SCH ×2 (09:08→22:39)
[2020-02-14] MEDS: METOPROLOL TARTRATE 25 MG TAB PO SCH ×2 (09:08→22:35)
[2020-02-14] MEDS ORDERED: FUROSEMIDE 40 MG TAB PO ONE (19:15)
[2020-02-14] MEDS ORDERED: SPIRONOLACTONE 25 MG TAB PO ONE (19:15)
[2020-02-15] VITALS: BP 125/93
[2020-02-15 03:32] LABS: Basophils # (auto) 0 10 ^3/uL (0-0.2); Eosinophils # (auto) 0 10 ^3/uL (0-0.8); Eosinophils % (auto) 0.1 % (0.0-7.0); Hematocrit 43.3 % (41.0-53.0); Hemoglobin 14.9 g/dL (13.5-17.5); Lymphocytes # (auto) 0.7 10 ^3/uL (0.4-5.4); Mean Corpuscular Hgb Conc. 34.3 g/dL (32.0-36.0); Monocytes # (auto) 0.7 10 ^3/uL (0-1.3); Nucleated Red Blood Cells % 0.1 %; Platelet Count (auto) 91 10^3/uL (140-450)
[2020-02-15 03:34] LABS: Basophils % (auto) 0.4 % (0.0-2.0); Lymphocytes % (auto) 9.4 % (10.0-50.0); Mean Corpuscular Hemoglobin 35.3 pg (28.0-32.0); Mean Corpuscular Volume 102.9 fL (80.0-100.0); Monocytes % (auto) 9.3 % (0.0-12.0); Neutrophils # (auto) 6.1 10 ^3/uL (1.6-8.6); Neutrophils % (auto) 80.8 % (37.0-80.0); Red Blood Cells 4.21 10^6/uL (4.5-5.90); Red Cell Distribution Width 17.9 % (11.8-14.3); White Blood Cell 7.6 10^3/uL (4.4-10.8)
[2020-02-15 03:52] LABS: Albumin 1.7 g/dL (3.4-5.0); BUN/Creatinine Ratio 20.2; Calcium 8.3 mg/dL (8.5-10.1)
[2020-02-15 04:03] LABS: Bilirubin, Total 18.8 mg/dL (0.2-1.0); Total Protein 6.2 g/dL (6.4-8.2)
[2020-02-15 04:39] LABS: INR 4.75 (0.9-1.15)
[2020-02-15] MEDS ORDERED: POTASSIUM EFFERVESENT TAB 25 MEQ PO ONE (05:30)
[2020-02-15] MEDS: LACTULOSE 20Gm/30ML SOLN PO SCH ×3 (06:00→18:00)
[2020-02-15] MEDS: ALBUTEROL SULF 2.5 MG/0.5ML(0.5%) NEB SOLN NEB SCH ×3 (07:47→18:10)
[2020-02-15] MEDS: IPRATROPIUM BROM 0.5 MG/2.5ML INH SOL NEB SCH ×3 (07:47→18:10)
[2020-02-15 08:00] VITALS: BP 139/88
[2020-02-15] MEDS: cefTRIAXone 1GM/50ML D5W 50 ML IV SCH (09:23)
[2020-02-15] MEDS: URSODIOL 300 MG CAP PO SCH ×2 (11:01→22:00)
[2020-02-15] MEDS: PANTOPRAZOLE 40 MG/10 ML VIAL INJ IV SCH ×2 (11:01→22:00)
[2020-02-15] MEDS: PARoxetine 20 MG TAB PO SCH (11:02)
[2020-02-15] MEDS: predniSONE 20 MG TAB PO SCH (11:02)
[2020-02-15] MEDS: METOPROLOL TARTRATE 25 MG TAB PO SCH ×2 (11:04→22:02)
[2020-02-15] MEDS: SPIRONOLACTONE 25 MG TAB PO SCH (11:04)
[2020-02-15] MEDS: FUROSEMIDE 40 MG TAB PO SCH (11:04)
[2020-02-15] MEDS: FAMOTIDINE 20 MG TAB PO SCH ×2 (11:04→22:00)
[2020-02-15] MEDS: SODIUM CHLOR 0.9% PF (SALINE LOCK) 10ML VIAL/SYR IV SCH ×2 (11:05→22:00)
[2020-02-15 11:57] VITALS: BP 121/84
[2020-02-15] MEDS ORDERED: POTASSIUM CHL 20MEQ/100ML 100 ML IV SCH (12:00)
[2020-02-15] MEDS: BUDESONIDE (INHALATION) 0.5 MG/2 ML NEB NEB SCH ×2 (12:05→18:10)
[2020-02-15 16:00] VITALS: BP 114/82
[2020-02-15] MEDS: POTASSIUM CHL 20MEQ/100ML 100 ML IV SCH ×2 (18:43→20:50)
[2020-02-15 19:31] LABS: Magnesium 1.6 mg/dL (1.6-2.6); Potassium 3.1 mmol/L (3.5-5.1)
[2020-02-15] MEDS: HYDROmorphone HCL 2 MG/ML VL IV PRN (19:35)
[2020-02-15 20:00] VITALS: BP 124/95
[2020-02-15] MEDS: MAGNESIUM SULFATE 1GM/100ML 100 ML IV SCH (23:39)
[2020-02-16] VITALS: BP 137/85
[2020-02-16] MEDS: MAGNESIUM SULFATE 1GM/100ML 100 ML IV SCH ×3 (00:55→11:06)
[2020-02-16 04:00] VITALS: BP 133/85
[2020-02-16] MEDS: LACTULOSE 20Gm/30ML SOLN PO SCH ×5 (06:00→21:02)
[2020-02-16] MEDS: ALBUTEROL SULF 2.5 MG/0.5ML(0.5%) NEB SOLN NEB SCH ×3 (06:33→18:53)
[2020-02-16] MEDS: IPRATROPIUM BROM 0.5 MG/2.5ML INH SOL NEB SCH ×3 (06:33→18:53)
[2020-02-16 07:32] LABS: Basophils # (auto) 0 10 ^3/uL (0-0.2); Eosinophils # (auto) 0 10 ^3/uL (0-0.8); Eosinophils % (auto) 0.1 % (0.0-7.0); Hematocrit 45.2 % (41.0-53.0); Hemoglobin 15.5 g/dL (13.5-17.5); Lymphocytes # (auto) 0.8 10 ^3/uL (0.4-5.4); Monocytes # (auto) 1.1 10 ^3/uL (0-1.3); Nucleated Red Blood Cells % 0.1 %
[2020-02-16 07:34] LABS: Basophils % (auto) 0.3 % (0.0-2.0); Lymphocytes % (auto) 7.6 % (10.0-50.0); Mean Corpuscular Hemoglobin 35.5 pg (28.0-32.0); Mean Corpuscular Hgb Conc. 34.4 g/dL (32.0-36.0); Mean Corpuscular Volume 103.2 fL (80.0-100.0); Monocytes % (auto) 10.5 % (0.0-12.0); Neutrophils # (auto) 8.5 10 ^3/uL (1.6-8.6); Neutrophils % (auto) 81.5 % (37.0-80.0); Platelet Count (auto) 91 10^3/uL (140-450); Red Blood Cells 4.37 10^6/uL (4.5-5.90); Red Cell Distribution Width 18.3 % (11.8-14.3); White Blood Cell 10.5 10^3/uL (4.4-10.8)
[2020-02-16 07:50] LABS: Albumin 1.8 g/dL (3.4-5.0); Calcium 8.2 mg/dL (8.5-10.1); Potassium 3.2 mmol/L (3.5-5.1)
[2020-02-16 07:53] LABS: BUN/Creatinine Ratio 20.2; Bilirubin, Total 21.4 mg/dL (0.2-1.0); Total Protein 6.1 g/dL (6.4-8.2)
[2020-02-16 08:00] VITALS: BP 120/73
[2020-02-16 08:09] LABS: INR 3.07 (0.9-1.15)
[2020-02-16] MEDS: URSODIOL 300 MG CAP PO SCH ×2 (10:00→21:20)
[2020-02-16] MEDS: cefTRIAXone 1GM/50ML D5W 50 ML IV SCH (10:00)
[2020-02-16] MEDS: POTASSIUM CHL 20MEQ/100ML 100 ML IV SCH ×3 (10:00→18:12)
[2020-02-16] MEDS: SPIRONOLACTONE 25 MG TAB PO SCH (10:01)
[2020-02-16] MEDS: PANTOPRAZOLE 40 MG/10 ML VIAL INJ IV SCH ×2 (10:01→21:02)
[2020-02-16] MEDS: SODIUM CHLOR 0.9% PF (SALINE LOCK) 10ML VIAL/SYR IV SCH ×2 (10:01→21:02)
[2020-02-16] MEDS: FAMOTIDINE 20 MG TAB PO SCH ×2 (10:02→21:01)
[2020-02-16] MEDS: predniSONE 20 MG TAB PO SCH (10:02)
[2020-02-16] MEDS: HYDROmorphone HCL 2 MG/ML VL IV PRN ×2 (10:02→21:20)
[2020-02-16] MEDS: PARoxetine 20 MG TAB PO SCH (10:02)
[2020-02-16] MEDS: FUROSEMIDE 40 MG TAB PO SCH (10:02)
[2020-02-16] MEDS: METOPROLOL TARTRATE 25 MG TAB PO SCH ×2 (10:02→21:02)
[2020-02-16 12:53] VITALS: BP 116/72
[2020-02-16] MEDS: BUDESONIDE (INHALATION) 0.5 MG/2 ML NEB NEB SCH ×2 (13:10→18:53)
[2020-02-16 17:00] VITALS: BP 104/77
[2020-02-16] MEDS ORDERED: POTASSIUM CHL 20MEQ/100ML 100 ML IV ONE (18:15)
[2020-02-16 22:00] VITALS: BP 134/82
[2020-02-17] MEDS: LACTULOSE 20Gm/30ML SOLN PO SCH ×4 (02:09→14:00)
[2020-02-17 05:00] VITALS: BP 119/73
[2020-02-17] MEDS: HYDROmorphone HCL 2 MG/ML VL IV PRN ×2 (05:45→11:07)
[2020-02-17] MEDS: BUDESONIDE (INHALATION) 0.5 MG/2 ML NEB NEB SCH (06:50)
[2020-02-17] MEDS: IPRATROPIUM BROM 0.5 MG/2.5ML INH SOL NEB SCH ×2 (06:50→12:00)
[2020-02-17] MEDS: ALBUTEROL SULF 2.5 MG/0.5ML(0.5%) NEB SOLN NEB SCH ×2 (06:50→12:00)
[2020-02-17 08:38] VITALS: BP 100/59
[2020-02-17] MEDS: cefTRIAXone 1GM/50ML D5W 50 ML IV SCH (09:44)
[2020-02-17] MEDS: PARoxetine 20 MG TAB PO SCH (10:00)
[2020-02-17] MEDS: PANTOPRAZOLE 40 MG/10 ML VIAL INJ IV SCH (10:05)
[2020-02-17] MEDS: SODIUM CHLOR 0.9% PF (SALINE LOCK) 10ML VIAL/SYR IV SCH (10:05)
[2020-02-17] MEDS: FAMOTIDINE 20 MG TAB PO SCH (10:05)
[2020-02-17] MEDS: predniSONE 20 MG TAB PO SCH (10:06)
[2020-02-17] MEDS ORDERED: CARVEDILOL 3.125 MG TAB PO ONE (10:15)
[2020-02-17] MEDS ORDERED: SPIRONOLACTONE 25 MG TAB PO ONE (10:15)
[2020-02-17] MEDS: URSODIOL 300 MG CAP PO SCH (10:35)
[2020-02-17] MEDS ORDERED: FUROSEMIDE 40 MG/4 ML VIAL IV ONE (10:45)
[2020-02-17] MEDS ORDERED: SPIRONOLACTONE 25 MG TAB PO SCH (10:45)
[2020-02-17] MEDS ORDERED: POTASSIUM CHL 20 Meq TABLET PO ONE (10:45)
[2020-02-17 12:20] VITALS: BP 111/70
[2020-02-17 13:08] VITALS: BP 117/70
[2020-02-17] MEDS ORDERED: FUROSEMIDE 40 MG/4 ML VIAL IV SCH (18:00)
[2020-02-17] MEDS ORDERED: CARVEDILOL 3.125 MG TAB PO SCH (22:00)
[2020-02-18] MEDS ORDERED: SPIRONOLACTONE 25 MG TAB PO SCH (10:00)
== END 2020-02-17 15:39 | disposition hospice, home (50) | DRG 134 ==
LOC: EDBD 22:05 → ER 22:12 → TELE 22:13 → TELE-EAST 02-11 03:50 → DOU IN ICU 02-11 18:13 → TELE-WESTW 02-16 14:45
PROVIDERS: ADMIT Nurse Practitioner; ATTEND Internal Medicine
DX: I26.99 Other pulmonary embolism without acute cor pulmonale (principal); J96.21 Acute and chronic respiratory failure with hypoxia; E43 Unspecified severe protein-calorie malnutrition; I50.23 Acute on chronic systolic (congestive) heart failure; E83.42 Hypomagnesemia; D69.6 Thrombocytopenia, unspecified; J45.901 Unspecified asthma with (acute) exacerbation; I48.0 Paroxysmal atrial fibrillation; I11.0 Hypertensive heart disease with heart failure; E66.01 Morbid (severe) obesity due to excess calories; Z20.828 Contact with and (suspected) exposure to other viral communicable diseases; E80.6 Other disorders of bilirubin metabolism; K72.90 Hepatic failure, unspecified without coma; E87.6 Hypokalemia; I82.401 Acute embolism and thrombosis of unspecified deep veins of right lower extremity; G47.33 Obstructive sleep apnea (adult) (pediatric); F10.10 Alcohol abuse, uncomplicated; J44.9 Chronic obstructive pulmonary disease, unspecified; K70.31 Alcoholic cirrhosis of liver with ascites; F17.210 Nicotine dependence, cigarettes, uncomplicated; E78.5 Hyperlipidemia, unspecified; G47.30 Sleep apnea, unspecified; G89.29 Other chronic pain; Z28.21 Immunization not carried out because of patient refusal; Z68.34 Body mass index [BMI] 34.0-34.9, adult
CPT/HCPCS: 36415; 36569; 36600; 71045; 71275; 74177; 76705; 80048; 80053; 80307; 80320; 81001; 82140; 82150; 82728; 82805; 83605; 83690; 83735; 83880; 84132; 84443; 84484; 85025; 85379; 85610; 85730; 86141; 87040; 87081; 93005; 93970; 94640; C9113; G0378; J0696; J2405; J3430; J3480; J7060